=== PATIENT | female | born 1945 | race Caucasian/White ===

== ENCOUNTER 2018-04-03 22:18 | Emergency (ER) | payer MEDICARE, OTHER ==
[~2018-04-03] VITALS: Ht 165.1 cm; Wt 79.4 kg
[~2018-04-03 22:18] MED LIST: ASPI325T8 PO; CYAN10005 IM; DIAZ5TAB PO; FLUN25SP NS; FLUT1DIS3 IH; FLUT9.9S NS; FURO-68 PO; HYDR25TA PO; LISI10TA2 PO; METF10007 PO; METO25TA4 PO; MONT10TA6 PO; OXYC1TAB22 PO; PANT40TA3 PO; POTA10TA12 PO; SENN8.6T99 PO; SIMV40TA PO; SITA100T PO; SULF-143 PO; TIOT18CA IH; TRIA15OI TP
--- NOTE | 2018-04-03 23:37 | PHYS DOC ---
Past Medical History Past Medical History: Diabetes-Type II Past Surgical History: No Surgical History Alcohol Use: Occasionally Drug Use: None Adult General Chief Complaint Chief Complaint: NOSEBLEED HPI HPI Patient is a 72 year old female who presents to the emergency room today with complaints of a nosebleed. Patient states that the nose began to bleed while she was in the shower this evening. She has tried ice packs at home and applying procedure herself without any stopping of her symptoms. Patient denies the use of any of blood thinners. She does not take medication for high blood pressure, and denies any recent head injury. Patient denies any pain or any known injury to her nose. Review of Systems Review of Systems Constitutional: Denies fever or chills [] Eyes: Denies change in visual acuity, redness, or eye pain [] HENT: Denies nasal congestion or sore throat, See HPI Respiratory: Denies cough or shortness of breath [] GI: Denies nausea, or vomiting Neurologic: Denies headache, focal weakness or sensory changes [] Complete systems were reviewed and found to be within normal limits, except as documented in this note. Allergies Allergies Allergies Coded Allergies Type Severity Reaction Last Updated Verified Penicillins Allergy Intermediate Hives 04/01/17 Yes Physical Exam Physical Exam Constitutional: Well developed, well nourished, no acute distress, non-toxic appearance. [] HENT: Normocephalic, atraumatic, bilateral external ears normal, oropharynx moist, posterior pharynx salma, no oral exudates; small abrasion noted to septal wall of R nare minimal bleeding, no bleeding from L nare. [] Eyes: conjunctiva normal, no discharge. [] Skin: Warm, dry, no erythema, no rash. [] Neurologic: Alert and oriented X 3, normal motor function, normal sensory function, no focal deficits noted. [] Psychologic: Affect normal, judgement normal, mood normal. [] Current Patient Data Vital Signs Vital Signs Date Time Temp Pulse Resp B/P (MAP) Pulse Ox O2 Delivery O2 Flow Rate FiO2 04/03/18 22:25 98.1 92 18 121/86 (98) 98 Room Air 98.1 EKG EKG [] Radiology/Procedures Radiology/Procedures [] Course & Med Decision Making Course & Med Decision Making Pertinent Labs and Imaging studies reviewed. (See chart for details) Dx: nose bleed, nasal septum abrasion Bleeding ceased after nasal clamp was applied in the ER. Pt was instructed not to blow her nose, or stick anything in her nose. Recommend a cool mist humidifier in room with patient for the next week to help moisten air. Follow up with PCP as needed. Return to the ER if symptoms persist or worsen. [] Dragon Disclaimer Dragon Disclaimer This electronic medical record was generated, in whole or in part, using a voice recognition dictation system. Departure Departure Impression: Primary Impression: Bleeding nose Additional Impression: Nasal abrasion Disposition: 01 HOME, SELF-CARE Condition: IMPROVED Referrals: UNKNOWN PCP NAME (PCP) Patient Instructions: Nosebleed, [id number] Additional Instructions: Do not to blow your nose, or stick anything into your nose. Recommend a cool mist humidifier in room with patient for the next week to help moisten air. Follow up with PCP as needed. Return to the ER if symptoms persist or worsen. [] Problem Qualifiers Additional Impression: Nasal abrasion Encounter type: initial encounter Qualified Codes: S00.31XA - Abrasion of nose, initial encounter KEV PORRAS E COMMERCE SPECIALIST Apr 03, 2018 23:37
[2018-04-03 23:45] VITALS: BP 124/76
== END 2018-04-03 23:48 | disposition home or self-care (01) ==
LOC: ER 22:18
DX: R04.0 Epistaxis (principal); S00.31XA Abrasion of nose, initial encounter; E11.9 Type 2 diabetes mellitus without complications; Z88.0 Allergy status to penicillin; X58.XXXA Exposure to other specified factors, initial encounter; Y93.89 Activity, other specified; Y92.89 Other specified places as the place of occurrence of the external cause; Y99.8 Other external cause status
CPT/HCPCS: 99282

== ENCOUNTER 2018-04-27 06:44 | Emergency (ER) | payer MEDICARE, OTHER ==
[~2018-04-27] VITALS: Ht 160 cm; Wt 79.4 kg
--- NOTE | 2018-04-27 07:01 | PHYS DOC ---
Past Medical History Past Medical History: Diabetes-Type II Past Surgical History: No Surgical History Alcohol Use: Occasionally Drug Use: None Adult General Chief Complaint Chief Complaint: NOSEBLEED HPI HPI Patient is a 72-year-old female who awakened this morning with a right-sided nosebleed. She denies any recent trauma but states she had her nose broken as a child and did undergo a corrective surgery for this about 4-5 years ago. She denies any pain or recent injury today. She did have a slight nosebleed about a week ago that stopped spontaneously. EMS reports that they applied pressure to the patient's nosebleed and her bleeding has stopped upon arrival in the emergency department. She denies any other complaints. The only anticoagulant she takes as a baby aspirin once a day. There are no alleviating or exacerbating factors to her symptoms. She has not had any other problems with easy bleeding or bruising in the past. Review of Systems Review of Systems Constitutional: Denies fever or chills [] Eyes: Denies change in visual acuity, redness, or eye pain [] HENT: Denies nasal congestion or sore throat [] Respiratory: Denies cough or shortness of breath [] Neurologic: Denies headache, focal weakness or sensory changes [] Endocrine: Denies polyuria or polydipsia [] Allergies Allergies Allergies Coded Allergies Type Severity Reaction Last Updated Verified Penicillins Allergy Intermediate Hives 04/01/17 Yes Physical Exam Physical Exam PHYSICAL EXAM: CONSTITUTIONAL: Well developed, well nourished HEAD: normocephalic, atraumatic EENT: PERRL, EOMI. Conjunctivae normal color, sclerae non-icteric; moist mucous membranes. There is mild excoriation of the anterior nasal mucosa on the right, medially, with no active bleeding. There is no bleeding in the posterior oropharynx. NECK: Supple, non-tender; no meningismus. LUNGS: Lungs CTA, breathing even and unlabored. Normal air movement. HEART: Regular rate and rhythm, no murmur CHEST: No deformity; non-tender ABDOMEN: The abdomen is soft, and non-tender, no masses or bruits. EXTREM: Normal ROM; no deformity, no calf tenderness. Normal pulses palpable in all extremities. There is no pedal edema. SKIN: No rash; no diaphoresis NEURO: Alert; normal speech and cognition; CN's grossly intact; strength grossly intact without focal deficit. BACK: No CVA TTP. Current Patient Data Vital Signs Vital Signs Date Time Temp Pulse Resp B/P (MAP) Pulse Ox O2 Delivery O2 Flow Rate FiO2 04/27/18 06:45 97.8 89 20 147/86 (106) 97 Room Air 97.8 EKG EKG [] Radiology/Procedures Radiology/Procedures [] Course & Med Decision Making Course & Med Decision Making 7:30 AM: The patient's condition remained stable, she has had no recurrence of her epistaxis. I discussed expectant management, home care plan for recurrence of bleeding, the need for follow-up, and return precautions. Dragon Disclaimer Dragon Disclaimer This electronic medical record was generated, in whole or in part, using a voice recognition dictation system. Departure Departure Impression: Primary Impression: Epistaxis Disposition: 01 HOME, SELF-CARE Condition: STABLE Referrals: RAY SINGH MD Patient Instructions: MATTHEW eGe MD Apr 27, 2018 07:01
[2018-04-27 07:48] VITALS: BP 108/55
== END 2018-04-27 08:34 | disposition home or self-care (01) ==
LOC: ER 06:44
DX: R04.0 Epistaxis (principal); E11.9 Type 2 diabetes mellitus without complications; Z88.0 Allergy status to penicillin
CPT/HCPCS: 99283

== ENCOUNTER 2018-05-10 01:57 | Emergency (ER) | payer MEDICARE ==
[~2018-05-10] VITALS: Ht 160 cm; Wt 83.9 kg
--- NOTE | 2018-05-10 02:17 | PHYS DOC ---
Past Medical History Past Medical History: Diabetes-Type II Past Surgical History: No Surgical History Alcohol Use: Occasionally Drug Use: None Adult General HPI HPI Patient is a 72-year-old female who presents with complaint of shortness of breath and pain in her upper abdomen after having been treated by a chiropractor earlier in the day. Patient states that she was having a difficult time sleeping and is feeling anxious. She denies any cough. She states that it is painful to take in a deep breath which is why she feels short of breath. Patient denies any other complaints. Review of Systems Review of Systems Constitutional: Denies fever or chills [] Respiratory: Denies cough or shortness of breath [] Cardiovascular: No additional information not addressed in HPI [] GI: Denies abdominal pain, nausea, vomiting or diarrhea [] Musculoskeletal: Positive back pain [] Integument: Denies rash or skin lesions [] All other systems were reviewed and found to be within normal limits, except as documented in this note. Current Medications Current Medications Current Medications Medications (Trade) Dose Ordered Sig/Armond Start Time Stop Time Status Last Admin Dose Admin Sodium Chloride 1,000 ml @ 1,000 mls/hr 1X ONCE 05/10/18 04:45 05/10/18 05:44 DC 05/10/18 04:45 1,000 MLS/HR Allergies Allergies Allergies Coded Allergies Type Severity Reaction Last Updated Verified Penicillins Allergy Intermediate Hives 04/01/17 Yes Physical Exam Physical Exam Constitutional: Well developed, well nourished, no acute distress, non-toxic appearance. [] HENT: Normocephalic, atraumatic, bilateral external ears normal, oropharynx moist, no oral exudates, nose normal. [] Eyes: PERRLA, EOMI, conjunctiva normal, no discharge. [] Neck: Normal range of motion, no tenderness, supple, no stridor. [] Cardiovascular: Mildly tachycardic rate with regular rhythm. There is reproducible tenderness to palpation in the bilateral lower, mid rib margins [] Lungs & Thorax: Bilateral breath sounds clear to auscultation [] Abdomen: Bowel sounds normal, soft. [] Skin: Warm, dry, no erythema, no rash. [] Extremities: No tenderness, no cyanosis, no clubbing, ROM intact, no edema. [] Neurologic: Awake and alert, no focal deficits noted. [] Current Patient Data Vital Signs Vital Signs Date Time Temp Pulse Resp B/P (MAP) Pulse Ox O2 Delivery O2 Flow Rate FiO2 05/10/18 04:10 82 18 105/67 (80) 94 05/10/18 02:15 98.3 Room Air 98.3 Lab Values Laboratory Tests Test 05/10/18 02:25 White Blood Count 7.8 x10^3/uL (4.0-11.0) Red Blood Count 3.03 x10^6/uL (3.50-5.40) L Hemoglobin 9.9 g/dL (12.0-15.5) L Hematocrit 28.2 % (36.0-47.0) L Mean Corpuscular Volume 93 fL (79-100) Mean Corpuscular Hemoglobin 33 pg (25-35) Mean Corpuscular Hemoglobin Concent 35 g/dL (31-37) Red Cell Distribution Width 13.2 % (11.5-14.5) Platelet Count 281 x10^3/uL (140-400) Neutrophils (%) (Auto) 77 % (31-73) H Lymphocytes (%) (Auto) 15 % (24-48) L Monocytes (%) (Auto) 5 % (0-9) Eosinophils (%) (Auto) 3 % (0-3) Basophils (%) (Auto) 1 % (0-3) Neutrophils # (Auto) 6.0 x10^3uL (1.8-7.7) Lymphocytes # (Auto) 1.2 x10^3/uL (1.0-4.8) Monocytes # (Auto) 0.4 x10^3/uL (0.0-1.1) Eosinophils # (Auto) 0.2 x10^3/uL (0.0-0.7) Basophils # (Auto) 0.1 x10^3/uL (0.0-0.2) Sodium Level 138 mmol/L (136-145) Potassium Level 4.7 mmol/L (3.5-5.1) Chloride Level 101 mmol/L (98-107) Carbon Dioxide Level 29 mmol/L (21-32) Anion Gap 8 (6-14) Blood Urea Nitrogen 57 mg/dL (7-20) H Creatinine 1.6 mg/dL (0.6-1.0) H Estimated GFR (Cockcroft-Gault) 31.5 BUN/Creatinine Ratio 36 (6-20) H Glucose Level 124 mg/dL (70-99) H Calcium Level 9.7 mg/dL (8.5-10.1) Total Bilirubin 0.3 mg/dL (0.2-1.0) Aspartate Amino Transferase (AST) 24 U/L (15-37) Alanine Aminotransferase (ALT) 20 U/L (14-59) Alkaline Phosphatase 56 U/L (46-116) Troponin I Quantitative < 0.017 ng/mL (0.000-0.055) Total Protein 7.1 g/dL (6.4-8.2) Albumin 3.2 g/dL (3.4-5.0) L Albumin/Globulin Ratio 0.8 (1.0-1.7) L Laboratory Tests 05/10/18 02:25 Laboratory Tests 05/10/18 02:25 EKG EKG [] Interpretation Time: EKG demonstrates mild sinus tachycardia with rate of 108. Radiology/Procedures Radiology/Procedures [] Impressions: Chest x-ray demonstrates no acute process. Course & Med Decision Making Course & Med Decision Making Pertinent Labs and Imaging studies reviewed. (See chart for details) [] Dragon Disclaimer Dragon Disclaimer This electronic medical record was generated, in whole or in part, using a voice recognition dictation system. Departure Departure Impression: Primary Impression: Chest wall pain Additional Impression: Dehydration Disposition: 01 HOME, SELF-CARE Condition: STABLE Referrals: UNKNOWN PCP NAME (PCP) Patient Instructions: Chest Wall Pain, Dehydration, Adult Problem Qualifiers JUSTICE HAMILTON Jr. DO May 10, 2018 02:17
[2018-05-10 03:46] LABS: BASO # 0.1 x10^3/uL (0.0-0.2); BASO % 1 % (0-3); EOS # 0.2 x10^3/uL (0.0-0.7); EOS % 3 % (0-3); HEMATOCRIT 28.2 % (36.0-47.0); HEMOGLOBIN 9.9 g/dL (12.0-15.5); LYMPH # 1.2 x10^3/uL (1.0-4.8); LYMPH % 15 % (24-48); MEAN CORPUSCULAR HEMOGLOBIN 33 pg (25-35); MEAN CORPUSCULAR HGB CONC 35 g/dL (31-37); MEAN CORPUSCULAR VOLUME 93 fL (79-100); MONO # 0.4 x10^3/uL (0.0-1.1); MONO % 5 % (0-9); NEUT % 77 % (31-73); PLATELET COUNT 281 x10^3/uL (140-400); RED BLOOD COUNT 3.03 x10^6/uL (3.50-5.40); RED CELL DISTRIBUTION WIDTH 13.2 % (11.5-14.5); WHITE BLOOD COUNT 7.8 x10^3/uL (4.0-11.0)
[2018-05-10 03:53] LABS: CALCIUM 9.7 mg/dL (8.5-10.1); CREATININE 1.6 mg/dL (0.6-1.0); GFR 31.5; POTASSIUM 4.7 mmol/L (3.5-5.1)
[2018-05-10 03:58] LABS: ALBUMIN 3.2 g/dL (3.4-5.0); ALBUMIN/GLOBULIN RATIO 0.8 (1.0-1.7); TOTAL BILIRUBIN 0.3 mg/dL (0.2-1.0); TOTAL PROTEIN 7.1 g/dL (6.4-8.2)
[2018-05-10] MEDS ORDERED: IV NORMAL SALINE 1000ML BAG 1,000 ML IV ONE (04:45)
--- NOTE | 2018-05-10 06:51 | EKG ---
[facility] [address] [place] [address] Test Date: 2018-05-10 Test Time: 02:12:18 Pat Name: SHAUN KING Department: Room: Gender: F [employer] Supervisor: : 1945 Requested By: JUSTICE HAMILTON Order Number: [id number] Reading MD: Kolton Estrada MD Measurements Intervals [place] Rate: 107 P: NM: QRS: 5 QRSD: 76 T: 48 QT: 344 QTc: 464 Interpretive Statements SR NON-SPECIFIC ST/T CHANGES Electronically Signed On 05-10-2018 12:33:05 [employer] ENER[employer] ENGINEER by Kolton Estrada MD
--- NOTE | 2018-05-10 08:07 | RAD ---
Portable chest, 05/10/2018: HISTORY: Chest pain Comparison is made to a study from 04/01/2017. The heart size and pulmonary vascularity are normal. There is mild linear atelectasis or scarring in the right parahilar region. No pulmonary consolidation is seen. There is no evidence of pleural fluid. Moderate hypertrophic spurring is present in the spine. IMPRESSION: Mild right perihilar linear atelectasis or scarring. Electronically signed by: Paul Quarles MD (05/10/2018 8:03 AM) [facility]
[2018-05-10 08:10] VITALS: BP 106/53
== END 2018-05-10 08:41 | disposition home or self-care (01) ==
LOC: ER 01:57
DX: R07.89 Other chest pain (principal); E86.0 Dehydration; R06.02 Shortness of breath; F41.9 Anxiety disorder, unspecified; E11.9 Type 2 diabetes mellitus without complications; Z88.0 Allergy status to penicillin
CPT/HCPCS: 36415; 71045; 80053; 84484; 85025; 93005; 96360; 99284; J7030

== ENCOUNTER 2018-05-30 10:44 | Emergency (ER) | payer MEDICARE, OTHER ==
[~2018-05-30] VITALS: Ht 157.5 cm; Wt 83.9 kg
[~2018-05-30 10:44] MED LIST changes: +CYAN-25 IM; -CYAN10005 IM; +MONT10TA49 PO; -MONT10TA6 PO; -PANT40TA3 PO; +PANT40TA77 PO
[2018-05-30] MEDS ORDERED: OXYMETAZOLINE 0.05% NASAL SPRAY 30ML BOTTLE. NS ONE (11:15)
[2018-05-30 11:26] LABS: HEMATOCRIT 29.5 % (36.0-47.0); HEMOGLOBIN 9.8 g/dL (12.0-15.5); RED BLOOD COUNT 3.16 x10^6/uL (3.50-5.40); WHITE BLOOD COUNT 4.7 x10^3/uL (4.0-11.0)
[2018-05-30 11:38] LABS: CALCIUM 9.2 mg/dL (8.5-10.1); CREATININE 1.4 mg/dL (0.6-1.0); GFR 36.8; POTASSIUM 4.3 mmol/L (3.5-5.1)
[2018-05-30 11:44] LABS: ALBUMIN 2.8 g/dL (3.4-5.0); ALBUMIN/GLOBULIN RATIO 0.7 (1.0-1.7); TOTAL BILIRUBIN 0.4 mg/dL (0.2-1.0); TOTAL PROTEIN 6.9 g/dL (6.4-8.2)
[2018-05-30 11:45] LABS: PROTHROMBIN TIME PATIENT 13.3 SEC (11.7-14.0)
--- NOTE | 2018-05-30 12:29 | PHYS DOC ---
Past Medical History Past Medical History: Anxiety, CAD, COPD, CVA, Diabetes-Type II, GERD, High Cholesterol, Hypertension, NM Past Surgical History: No Surgical History, Angioplasty, Cholecystectomy, Hysterectomy, Tonsillectomy, Other Additional Past Surgical Histo: CARDIAC STENTS Alcohol Use: None Drug Use: None Adult General Chief Complaint Chief Complaint: NOSEBLEED HPI HPI Patient is a 72 year old female resident of assisted living home brought in by EMS because of nosebleed. Patient states her nose due to started at 8:30 at right side and stopped at arrival to emergency room. Patient states she had history of nosebleed about 1 month ago and complaining of nasal congestion and discharge for the last few days without fever and chills. Patient denies dizziness, bleeding problem, chest pain and shortness of breath. Patient is taking baby aspirin. Review of Systems Review of Systems Constitutional: Denies fever or chills [] Eyes: Denies change in visual acuity, redness, or eye pain [] HENT: Force nasal congestion and bleeding Respiratory: Denies cough or shortness of breath [] Cardiovascular: No additional information not addressed in HPI [] GI: Denies abdominal pain, nausea, vomiting, bloody stools or diarrhea [] : Denies dysuria or hematuria [] Musculoskeletal: Denies back pain or joint pain [] Integument: Denies rash or skin lesions [] Neurologic: Denies headache, focal weakness or sensory changes [] Endocrine: Denies polyuria or polydipsia [] All other systems were reviewed and found to be within normal limits, except as documented in this note. Current Medications Current Medications Current Medications Medications (Trade) Dose Ordered Sig/Armond Start Time Stop Time Status Last Admin Dose Admin Oxymetazoline HCl (Afrin) 2 spray 1X ONCE 05/30/18 11:15 05/30/18 11:16 DC 05/30/18 11:28 2 SPRAY Allergies Allergies Allergies Coded Allergies Type Severity Reaction Last Updated Verified Penicillins Allergy Intermediate Hives 04/01/17 Yes Physical Exam Physical Exam Constitutional: Well nourished, mild acute distress, non-toxic appearance. [] HENT: Normocephalic, atraumatic, bilateral external ears normal, oropharynx moist, no oral exudates, no active nasal bleeding, dried blood in right nostril[ ] Eyes: PERRLA, EOMI, conjunctiva normal, no discharge. [] Neck: Normal range of motion, no tenderness, supple, no stridor. [] Cardiovascular:Heart rate regular rhythm, no murmur [] Lungs & Thorax: Bilateral breath sounds clear to auscultation [] Skin: Warm, dry, no erythema, no rash. [] Back: No tenderness, no CVA tenderness. [] Extremities: No tenderness, no cyanosis, no clubbing, ROM intact, no edema. [] Neurologic: Alert and oriented X 3, normal motor function, normal sensory function, no focal deficits noted. [] Psychologic: Affect anxious, judgement normal, mood normal. [] Current Patient Data Vital Signs Vital Signs Date Time Temp Pulse Resp B/P (MAP) Pulse Ox O2 Delivery O2 Flow Rate FiO2 05/30/18 12:30 82 117/61 (79) 95 Room Air 05/30/18 10:44 99.0 20 99.0 Lab Values Laboratory Tests Test 05/30/18 11:16 White Blood Count 4.7 x10^3/uL (4.0-11.0) Red Blood Count 3.16 x10^6/uL (3.50-5.40) L Hemoglobin 9.8 g/dL (12.0-15.5) L Hematocrit 29.5 % (36.0-47.0) L Mean Corpuscular Volume 93 fL (79-100) Mean Corpuscular Hemoglobin 31 pg (25-35) Mean Corpuscular Hemoglobin Concent 33 g/dL (31-37) Red Cell Distribution Width 13.0 % (11.5-14.5) Platelet Count 223 x10^3/uL (140-400) Prothrombin Time 13.3 SEC (11.7-14.0) Prothrombin Time INR 1.0 (0.8-1.1) Sodium Level 138 mmol/L (136-145) Potassium Level 4.3 mmol/L (3.5-5.1) Chloride Level 103 mmol/L (98-107) Carbon Dioxide Level 27 mmol/L (21-32) Anion Gap 8 (6-14) Blood Urea Nitrogen 58 mg/dL (7-20) H Creatinine 1.4 mg/dL (0.6-1.0) H Estimated GFR (Cockcroft-Gault) 36.8 BUN/Creatinine Ratio 41 (6-20) H Glucose Level 158 mg/dL (70-99) H Calcium Level 9.2 mg/dL (8.5-10.1) Total Bilirubin 0.4 mg/dL (0.2-1.0) Aspartate Amino Transferase (AST) 22 U/L (15-37) Alanine Aminotransferase (ALT) 22 U/L (14-59) Alkaline Phosphatase 69 U/L (46-116) Total Protein 6.9 g/dL (6.4-8.2) Albumin 2.8 g/dL (3.4-5.0) L Albumin/Globulin Ratio 0.7 (1.0-1.7) L Laboratory Tests 05/30/18 11:16 Laboratory Tests 05/30/18 11:16 EKG EKG [] Radiology/Procedures Radiology/Procedures [] Course & Med Decision Making Course & Med Decision Making Pertinent Labs reviewed. (See chart for details) Evaluation of patient in ER showed 72-year-old female patient brought in by EMS because of nosebleed. Patient did not have active epistaxis in ER and treated with nasal Afrin spray. Labs showed chronic anemia and renal insufficiency. Patient was advised to apply local pressure on her nose in case of nasal bleeding. Patient was advised to follow with her primary care physician. Dragon Disclaimer Dragon Disclaimer This electronic medical record was generated, in whole or in part, using a voice recognition dictation system. Departure Departure Impression: Primary Impression: Epistaxis Additional Impressions: Nasal congestion Chronic anemia Chronic renal insufficiency Disposition: 01 HOME, SELF-CARE (@1225) Condition: IMPROVED Referrals: SHELLY GODINEZ MD (PCP) Patient Instructions: Nose Drops, Saline, [id number], Nosebleed Additional Instructions: Use provided nose spray of Afrin up to 4 times a day as needed for nosebleed Follow-up with your primary care physician in 3-5 days Return to ER if not getting better Problem Qualifiers MANDEEP LORA MD May 30, 2018 12:28
[2018-05-30 12:30] VITALS: BP 117/61
== END 2018-05-30 12:52 | disposition home or self-care (01) ==
LOC: ER 10:44
DX: R04.0 Epistaxis (principal); R09.81 Nasal congestion; D64.89 Other specified anemias; E11.22 Type 2 diabetes mellitus with diabetic chronic kidney disease; I12.9 Hypertensive chronic kidney disease with stage 1 through stage 4 chronic kidney disease, or unspecified chronic kidney disease; N18.9 Chronic kidney disease, unspecified; E78.00 Pure hypercholesterolemia, unspecified; K21.9 Gastro-esophageal reflux disease without esophagitis; Z86.73 Personal history of transient ischemic attack (TIA), and cerebral infarction without residual deficits; I25.10 Atherosclerotic heart disease of native coronary artery without angina pectoris; I25.2 Old myocardial infarction; Z95.5 Presence of coronary angioplasty implant and graft; Z88.0 Allergy status to penicillin
CPT/HCPCS: 36415; 80053; 85027; 85610; 99284

== ENCOUNTER 2018-11-17 11:41 | Inpatient (IN) | payer MEDICARE, OTHER ==
[~2018-11-17] VITALS: Ht 162.6 cm; Wt 102.8 kg
[2018-11-17 12:33] LABS: BASO # 0.1 x10^3/uL (0.0-0.2); BASO % 1 % (0-3); EOS # 0.2 x10^3/uL (0.0-0.7); EOS % 2 % (0-3); HEMATOCRIT 39.2 % (36.0-47.0); HEMOGLOBIN 12.9 g/dL (12.0-15.5); LYMPH # 1.1 x10^3/uL (1.0-4.8); LYMPH % 15 % (24-48); MEAN CORPUSCULAR HEMOGLOBIN 29 pg (25-35); MEAN CORPUSCULAR HGB CONC 33 g/dL (31-37); MEAN CORPUSCULAR VOLUME 89 fL (79-100); MONO # 0.3 x10^3/uL (0.0-1.1); MONO % 4 % (0-9); NEUT # 5.7 x10^3/uL (1.8-7.7); NEUT % 78 % (31-73); PLATELET COUNT 248 x10^3/uL (140-400); RED BLOOD COUNT 4.39 x10^6/uL (3.50-5.40); RED CELL DISTRIBUTION WIDTH 14.9 % (11.5-14.5); WHITE BLOOD COUNT 7.3 x10^3/uL (4.0-11.0)
--- NOTE | 2018-11-17 12:41 | RAD ---
PORTABLE CHEST 1V History: Shortness of breath.. Comparison: May 10, 2018. Heart size is stable no evidence of pneumothorax, pleural effusion or consolidation. There are linear markings in both lungs, particularly the bases, may represent atelectasis or fibrosis. Degenerative changes at the shoulders. IMPRESSION: No consolidating infiltrate is identified. Electronically signed by: Sb Lomas MD (11/17/2018 12:39 PM) [id number]
[2018-11-17 12:43] LABS: PROTHROMBIN TIME PATIENT 12.8 SEC (11.7-14.0)
[2018-11-17 12:44] LABS: CALCIUM 9.5 mg/dL (8.5-10.1); CREATININE 1.4 mg/dL (0.6-1.0); GFR 36.8; POTASSIUM 4.4 mmol/L (3.5-5.1)
[2018-11-17 12:51] LABS: ALBUMIN 3.6 g/dL (3.4-5.0); ALBUMIN/GLOBULIN RATIO 1.1 (1.0-1.7); MAGNESIUM 1.5 mg/dL (1.8-2.4); TOTAL BILIRUBIN 0.6 mg/dL (0.2-1.0)
[2018-11-17 12:57] LABS: CREATINE KINASE 74 U/L (26-192)
--- NOTE | 2018-11-17 13:06 | EKG ---
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
--- NOTE | 2018-11-17 15:35 | PDOC1 ---
History and Physical Date of Admission Date of Admission DATE: 11/17/18 TIME: 15:35 Identification/Chief Complaint Chief Complaint seen in er , 72 year old female who was taken here from nuclear medicine department for trouble breathing, hypotension while she had a nuclear stress test done. She says she had the first test done yesterday and she was doing ok but today she has shortness of air and having low blood pressure. Patient denied any chest pain. Patient said she has been having nonproductive cough for a few day. She lives at the skilled nursing and some of the residents there have pneumonia. Past Medical History Cardiovascular: HTN, Hyperlipidemia Pulmonary: Asthma Heme/Onc: B12 deficiency Psych: Anxiety Musculoskeletal: Osteoarthritis Renal/: Chronic renal insuff Endocrine: Diabetes Past Surgical History Past Surgical History: No pertinent history Family History Family History: High Cholestrol Social History Smoke: No ALCOHOL: none Drugs: None Current Medications Current Medications Active Scripts Active Sulfamethoxazole-Tmp Ds Tablet (Sulfamethoxazole/Trimethoprim) 1 Each Tablet 1 Tab PO BID 5 Days Aspirin 325 Mg Tablet 325 Mg PO DAILYWBKFT 30 Days Reported Valium (Diazepam) 5 Mg Tablet 5 Mg PO BID PRN Percocet 10-325 Mg Tablet (Oxycodone/Acetaminophen) 1 Each Tablet 1 Tab PO PRN Q6HRS PRN Metformin Hcl 1,000 Mg Tablet 1,000 Mg PO BIDWMEALS Zocor (Simvastatin) 40 Mg Tablet 40 Mg PO HS Advair 250-50 Diskus (Fluticasone/Salmeterol) 1 Each Disk.w.dev 1 Inh IH BID Potassium Chloride 10 Meq Tablet.er 10 Meq PO BID Spiriva (Tiotropium [place]) 18 Mcg Cap.w.dev 1 Cap IH DAILY Lisinopril 10 Mg Tablet 10 Mg PO DAILY Senokot (Sennosides) 8.6 Mg Tablet 8.6 Mg PO DAILY Protonix (Pantoprazole Sodium) 40 Mg Tablet.dr 40 Mg PO DAILY Singulair Tablet (Montelukast Sodium) 10 Mg Tablet 10 Mg PO HS Lasix (Furosemide) 40 Mg Tablet 80 Mg PO DAILY Januvia (Sitagliptin Phosphate) 100 Mg Tablet 100 Mg PO DAILY Triamcinolone Acetonide 0.1% Oint (Triamcinolone Acetonide) 15 Gm Oint...g. 1 Lisa TP TID MIX WITH EUCERIN DIRECTED BY PHYSICIAN Flonase Allergy Relief (Fluticasone Propionate) 9.9 Ml Brantley.susp 2 Sprays NS DAILY Metoprolol Tartrate 25 Mg Tablet 12.5 Mg PO BID Hydroxyzine Hcl 25 Mg Tablet 25 Mg PO BID Vitamin B-12 (Cyanocobalamin (Vitamin B-12)) 1,000 Mcg Tablet 1,000 Mcg IM QMONTH Flunisolide 25 Ml Brantley 2 Brantley NS BID Allergies Allergies: Coded Allergies: Penicillins (Verified Allergy, Intermediate, Hives, 04/01/17) ROS Review of System Review of Systems Review of Systems Constitutional: Denies fever or chills [] Eyes: Denies change in visual acuity, redness, or eye pain [] HENT: Denies nasal congestion or sore throat [] Respiratory: Positive for cough and shortness of breath [] Cardiovascular: No additional information not addressed in HPI [] GI: Denies abdominal pain, nausea, vomiting, bloody stools or diarrhea [] : Denies dysuria or hematuria [] Musculoskeletal: Denies back pain or joint pain [] Integument: Denies rash or skin lesions [] Neurologic: Denies headache, focal weakness or sensory changes [] Endocrine: Denies polyuria or polydipsia [] 14 pt systems were reviewed and found to be within normal limits, except as documented Physical Exam Physical Exam Physical Exam Physical Exam Constitutional: Well developed, well nourished, no acute distress, non-toxic appearance. [] HENT: Normocephalic, atraumatic, bilateral external ears normal, oropharynx moist, no oral exudates, nose normal. [] Eyes: PERRLA, EOMI, conjunctiva normal, no discharge. [] Neck: Normal range of motion, no tenderness, supple, no stridor. [] Cardiovascular:Heart rate regular rhythm, no murmur [] Lungs & Thorax: Bilateral breath sounds clear to auscultation [] Abdomen: Bowel sounds normal, soft, no tenderness, no masses, no pulsatile masses. [] Skin: Warm, dry, no erythema, no rash. [] Back: No tenderness, no CVA tenderness. [] Extremities: No tenderness, no cyanosis, no clubbing, ROM intact, no edema. [] Neurologic: Alert and oriented X 3, normal motor function, normal sensory function, no focal deficits noted. [] Psychologic: Affect normal, judgement normal, mood normal. [] General: Alert, Oriented X3, Cooperative, No acute distress HEENT: Atraumatic Lungs: Clear to auscultation Heart: RRR Breasts: Not examined Abdomen: Normal bowel sounds, Soft Rectal Exam: not examined Extremities: No cyanosis Neuro: Normal speech, Cranial nerves 3-12 NL Psych/Mental Status: Mental status NL, Mood NL Vitals Vitals Vital Signs Date Time Temp Pulse Resp B/P (MAP) Pulse Ox O2 Delivery O2 Flow Rate FiO2 11/17/18 13:04 120 18 97/71 (80) 90 Nasal Cannula 3.0 11/17/18 11:47 98.0 98.0 Labs Labs Laboratory Tests Test 11/17/18 11:55 White Blood Count 7.3 x10^3/uL (4.0-11.0) Red Blood Count 4.39 x10^6/uL (3.50-5.40) Hemoglobin 12.9 g/dL (12.0-15.5) Hematocrit 39.2 % (36.0-47.0) Mean Corpuscular Volume 89 fL (79-100) Mean Corpuscular Hemoglobin 29 pg (25-35) Mean Corpuscular Hemoglobin Concent 33 g/dL (31-37) Red Cell Distribution Width 14.9 % (11.5-14.5) Platelet Count 248 x10^3/uL (140-400) Neutrophils (%) (Auto) 78 % (31-73) Lymphocytes (%) (Auto) 15 % (24-48) Monocytes (%) (Auto) 4 % (0-9) Eosinophils (%) (Auto) 2 % (0-3) Basophils (%) (Auto) 1 % (0-3) Neutrophils # (Auto) 5.7 x10^3/uL (1.8-7.7) Lymphocytes # (Auto) 1.1 x10^3/uL (1.0-4.8) Monocytes # (Auto) 0.3 x10^3/uL (0.0-1.1) Eosinophils # (Auto) 0.2 x10^3/uL (0.0-0.7) Basophils # (Auto) 0.1 x10^3/uL (0.0-0.2) Prothrombin Time 12.8 SEC (11.7-14.0) Prothromb Time International Ratio 1.0 (0.8-1.1) Activated Partial Thromboplast Time 24 SEC (24-38) Sodium Level 141 mmol/L (136-145) Potassium Level 4.4 mmol/L (3.5-5.1) Chloride Level 103 mmol/L (98-107) Carbon Dioxide Level 27 mmol/L (21-32) Anion Gap 11 (6-14) Blood Urea Nitrogen 39 mg/dL (7-20) Creatinine 1.4 mg/dL (0.6-1.0) Estimated GFR (Cockcroft-Gault) 36.8 BUN/Creatinine Ratio 28 (6-20) Glucose Level 151 mg/dL (70-99) Calcium Level 9.5 mg/dL (8.5-10.1) Magnesium Level 1.5 mg/dL (1.8-2.4) Total Bilirubin 0.6 mg/dL (0.2-1.0) Aspartate Amino Transf (AST/SGOT) 16 U/L (15-37) Alanine Aminotransferase (ALT/SGPT) 15 U/L (14-59) Alkaline Phosphatase 76 U/L (46-116) Creatine Kinase 74 U/L (26-192) Creatine Kinase MB (Mass) 1.3 ng/mL (0.0-3.6) Creatine Kinase MB Relative Index % (0-4) Troponin I Quantitative < 0.017 ng/mL (0.000-0.055) HV-Lmo-M-Type Natriuretic Peptide 2062 pg/mL (0-124) Total Protein 7.0 g/dL (6.4-8.2) Albumin 3.6 g/dL (3.4-5.0) Albumin/Globulin Ratio 1.1 (1.0-1.7) Laboratory Tests Test 11/17/18 11:55 White Blood Count 7.3 x10^3/uL (4.0-11.0) Red Blood Count 4.39 x10^6/uL (3.50-5.40) Hemoglobin 12.9 g/dL (12.0-15.5) Hematocrit 39.2 % (36.0-47.0) Mean Corpuscular Volume 89 fL (79-100) Mean Corpuscular Hemoglobin 29 pg (25-35) Mean Corpuscular Hemoglobin Concent 33 g/dL (31-37) Red Cell Distribution Width 14.9 % (11.5-14.5) Platelet Count 248 x10^3/uL (140-400) Neutrophils (%) (Auto) 78 % (31-73) Lymphocytes (%) (Auto) 15 % (24-48) Monocytes (%) (Auto) 4 % (0-9) Eosinophils (%) (Auto) 2 % (0-3) Basophils (%) (Auto) 1 % (0-3) Neutrophils # (Auto) 5.7 x10^3/uL (1.8-7.7) Lymphocytes # (Auto) 1.1 x10^3/uL (1.0-4.8) Monocytes # (Auto) 0.3 x10^3/uL (0.0-1.1) Eosinophils # (Auto) 0.2 x10^3/uL (0.0-0.7) Basophils # (Auto) 0.1 x10^3/uL (0.0-0.2) Prothrombin Time 12.8 SEC (11.7-14.0) Prothromb Time International Ratio 1.0 (0.8-1.1) Activated Partial Thromboplast Time 24 SEC (24-38) Sodium Level 141 mmol/L (136-145) Potassium Level 4.4 mmol/L (3.5-5.1) Chloride Level 103 mmol/L (98-107) Carbon Dioxide Level 27 mmol/L (21-32) Anion Gap 11 (6-14) Blood Urea Nitrogen 39 mg/dL (7-20) Creatinine 1.4 mg/dL (0.6-1.0) Estimated GFR (Cockcroft-Gault) 36.8 BUN/Creatinine Ratio 28 (6-20) Glucose Level 151 mg/dL (70-99) Calcium Level 9.5 mg/dL (8.5-10.1) Magnesium Level 1.5 mg/dL (1.8-2.4) Total Bilirubin 0.6 mg/dL (0.2-1.0) Aspartate Amino Transf (AST/SGOT) 16 U/L (15-37) Alanine Aminotransferase (ALT/SGPT) 15 U/L (14-59) Alkaline Phosphatase 76 U/L (46-116) Creatine Kinase 74 U/L (26-192) Creatine Kinase MB (Mass) 1.3 ng/mL (0.0-3.6) Creatine Kinase MB Relative Index % (0-4) Troponin I Quantitative < 0.017 ng/mL (0.000-0.055) RK-Rch-W-Type Natriuretic Peptide 2062 pg/mL (0-124) Total Protein 7.0 g/dL (6.4-8.2) Albumin 3.6 g/dL (3.4-5.0) Albumin/Globulin Ratio 1.1 (1.0-1.7) Images Images PORTABLE CHEST 1V History: Shortness of breath.. Comparison: May 10, 2018. Heart size is stable no evidence of pneumothorax, pleural effusion or consolidation. There are linear markings in both lungs, particularly the bases, may represent atelectasis or fibrosis. Degenerative changes at the shoulders. IMPRESSION: No consolidating infiltrate is identified. Electronically signed by: Sb Lomas MD (11/17/2018 12:39 PM) [facility] VTE Prophylaxis Ordered VTE Prophylaxis Devices: Yes VTE Pharmacological Prophylaxi: Yes Assessment/Plan Assessment/Plan Impression: Dyspnea known hx cad morbid obesity remote cerebrovascular accident, left parietal infarct. Diabetes. Hypertension Hyperlipidemia. hx Chronic obstructive pulmonary disease. CKD STAGE 3 ADMITTED tele cardiology consult serial troponin i obtain results of stress testing HOME MEDS DVT PROPHYLAXIS 63 min pt exam, chart review, > 50% of time spent with exam, chart review, pt care coordination ALEXANDRIA DAMICO MD Nov 17, 2018 15:35
--- NOTE | 2018-11-17 16:16 | PHYS DOC ---
Past Medical History Past Medical History: Anxiety, CAD, COPD, CVA, Diabetes-Type II, GERD, High Cholesterol, Hypertension, MT Past Surgical History: No Surgical History, Angioplasty, Cholecystectomy, Hysterectomy, Tonsillectomy, Other Additional Past Surgical Histo: CARDIAC STENTS Alcohol Use: None Drug Use: None Adult General Chief Complaint Chief Complaint: SHORTNESS OF BREATH HPI HPI Patient is a 72 year old female who was taken here from nuclear medicine department for trouble breathing, hypotension while she had a nuclear stress test done. She says she had the first test done yesterday and she was doing ok but today she has shortness of air and having low blood pressure. Patient denied any chest pain. Patient said she has been having nonproductive cough for a few day. [facility] and some of the residents there have pneumonia. Review of Systems Review of Systems Constitutional: Denies fever or chills [] Eyes: Denies change in visual acuity, redness, or eye pain [] HENT: Denies nasal congestion or sore throat [] Respiratory: Positive for cough and shortness of breath [] Cardiovascular: No additional information not addressed in HPI [] GI: Denies abdominal pain, nausea, vomiting, bloody stools or diarrhea [] : Denies dysuria or hematuria [] Musculoskeletal: Denies back pain or joint pain [] Integument: Denies rash or skin lesions [] Neurologic: Denies headache, focal weakness or sensory changes [] Endocrine: Denies polyuria or polydipsia [] All other systems were reviewed and found to be within normal limits, except as documented in this note. Current Medications Current Medications Current Medications Medications (Trade) Dose Ordered Sig/Armond Start Time Stop Time Status Last Admin Dose Admin Albuterol/ Ipratropium (Duoneb) 3 ml RTQID 11/17/18 20:00 11/18/18 19:59 Allergies Allergies Allergies Coded Allergies Type Severity Reaction Last Updated Verified Penicillins Allergy Intermediate Hives 04/01/17 Yes Physical Exam Physical Exam Constitutional: Well developed, well nourished, no acute distress, non-toxic appearance. [] HENT: Normocephalic, atraumatic, bilateral external ears normal, oropharynx moist, no oral exudates, nose normal. [] Eyes: PERRLA, EOMI, conjunctiva normal, no discharge. [] Neck: Normal range of motion, no tenderness, supple, no stridor. [] Cardiovascular:Heart rate regular rhythm, no murmur [] Lungs & Thorax: Bilateral breath sounds clear to auscultation [] Abdomen: Bowel sounds normal, soft, no tenderness, no masses, no pulsatile masses. [] Skin: Warm, dry, no erythema, no rash. [] Back: No tenderness, no CVA tenderness. [] Extremities: No tenderness, no cyanosis, no clubbing, ROM intact, no edema. [] Neurologic: Alert and oriented X 3, normal motor function, normal sensory function, no focal deficits noted. [] Psychologic: Affect normal, judgement normal, mood normal. [] Current Patient Data Vital Signs Vital Signs Date Time Temp Pulse Resp B/P (MAP) Pulse Ox O2 Delivery O2 Flow Rate FiO2 11/17/18 15:14 98 18 119/66 (83) 95 Nasal Cannula 3.0 11/17/18 11:47 98.0 98.0 Lab Values Laboratory Tests Test 11/17/18 11:55 White Blood Count 7.3 x10^3/uL (4.0-11.0) Red Blood Count 4.39 x10^6/uL (3.50-5.40) Hemoglobin 12.9 g/dL (12.0-15.5) Hematocrit 39.2 % (36.0-47.0) Mean Corpuscular Volume 89 fL (79-100) Mean Corpuscular Hemoglobin 29 pg (25-35) Mean Corpuscular Hemoglobin Concent 33 g/dL (31-37) Red Cell Distribution Width 14.9 % (11.5-14.5) H Platelet Count 248 x10^3/uL (140-400) Neutrophils (%) (Auto) 78 % (31-73) H Lymphocytes (%) (Auto) 15 % (24-48) L Monocytes (%) (Auto) 4 % (0-9) Eosinophils (%) (Auto) 2 % (0-3) Basophils (%) (Auto) 1 % (0-3) Neutrophils # (Auto) 5.7 x10^3/uL (1.8-7.7) Lymphocytes # (Auto) 1.1 x10^3/uL (1.0-4.8) Monocytes # (Auto) 0.3 x10^3/uL (0.0-1.1) Eosinophils # (Auto) 0.2 x10^3/uL (0.0-0.7) Basophils # (Auto) 0.1 x10^3/uL (0.0-0.2) Prothrombin Time 12.8 SEC (11.7-14.0) Prothrombin Time INR 1.0 (0.8-1.1) PTT 24 SEC (24-38) Sodium Level 141 mmol/L (136-145) Potassium Level 4.4 mmol/L (3.5-5.1) Chloride Level 103 mmol/L (98-107) Carbon Dioxide Level 27 mmol/L (21-32) Anion Gap 11 (6-14) Blood Urea Nitrogen 39 mg/dL (7-20) H Creatinine 1.4 mg/dL (0.6-1.0) H Estimated GFR (Cockcroft-Gault) 36.8 BUN/Creatinine Ratio 28 (6-20) H Glucose Level 151 mg/dL (70-99) H Calcium Level 9.5 mg/dL (8.5-10.1) Magnesium Level 1.5 mg/dL (1.8-2.4) L Total Bilirubin 0.6 mg/dL (0.2-1.0) Aspartate Amino Transferase (AST) 16 U/L (15-37) Alanine Aminotransferase (ALT) 15 U/L (14-59) Alkaline Phosphatase 76 U/L (46-116) Creatine Kinase 74 U/L (26-192) Creatine Kinase MB (Mass) 1.3 ng/mL (0.0-3.6) Creatine Kinase MB Relative Index % (0-4) Troponin I Quantitative < 0.017 ng/mL (0.000-0.055) OL-Rtv-M-Type Natriuretic Peptide 2062 pg/mL (0-124) H Total Protein 7.0 g/dL (6.4-8.2) Albumin 3.6 g/dL (3.4-5.0) Albumin/Globulin Ratio 1.1 (1.0-1.7) Laboratory Tests 11/17/18 11:55 Laboratory Tests 11/17/18 11:55 EKG EKG EKG RATE OF 134 BPM, SINUS TACHYCARDIA, NO STEMI. Radiology/Procedures Radiology/Procedures [][facility] [address] [place] [address] IMAGING REPORT Signed PATIENT: SHAUN KING ACCOUNT: [id number] : 1945 LOCATION: ER AGE: 72 SEX: F EXAM STATUS: REG ER ORD. PHYSICIAN: NUVIA MENDOZA DO REASON: SOA PROCEDURE: PORTABLE CHEST 1V PORTABLE CHEST 1V History: Shortness of breath.. Comparison: May 10, 2018. Heart size is stable no evidence of pneumothorax, pleural effusion or consolidation. There are linear markings in both lungs, particularly the bases, may represent atelectasis or fibrosis. Degenerative changes at the shoulders. IMPRESSION: No consolidating infiltrate is identified. Electronically signed by: Sb Lomas MD (11/17/2018 12:39 PM) [facility] DICTATED and SIGNED BY: SB LOMAS MD DATE: 11/17/18 1239 Course & Med Decision Making Course & Med Decision Making Pertinent Labs and Imaging studies reviewed. (See chart for details) Patient felt much better now, no chest pain, no shortness of air, no abdominal pain, no nausea or vomiting. Dragon Disclaimer Dragon Disclaimer This electronic medical record was generated, in whole or in part, using a voice recognition dictation system. Departure Departure Impression: Primary Impression: Dyspnea Disposition: ADMITTED INPATIENT Admitting Physician: KIRSTIN Referrals: SHELLY GODINEZ MD (PCP) NUVIA MENDOZA DO Nov 17, 2018 16:16
[2018-11-17 17:00] VITALS: BP 112/65
[2018-11-17] MEDS ORDERED: oxyCODONE/APAP 10/325 1 TAB TABLET PO PRN (17:15)
[2018-11-17] MEDS: POTASSIUM CHLORIDE 10 MEQ TABLET.ER. PO SCH (17:22)
[2018-11-17] MEDS: metFORMIN 500 MG TABLET PO SCH (17:23)
[2018-11-17] MEDS ORDERED: ENOXAPARIN 40 MG/0.4 ML SYRINGE. SQ SCH (18:00)
[2018-11-17] MEDS ORDERED: KRIL1CAP10 PO (18:22)
[2018-11-17] MEDS ORDERED: MUPI22OI2 TP (18:22)
[2018-11-17] MEDS ORDERED: ALEN70TA6 PO (18:22)
[2018-11-17] MEDS ORDERED: ACET500T68 PO (18:22)
[2018-11-17] MEDS ORDERED: COLL30OI TP (18:22)
[2018-11-17] MEDS ORDERED: DICL100G18 TP (18:22)
[2018-11-17] MEDS ORDERED: DIAZ2TAB PO (18:22)
[2018-11-17] MEDS ORDERED: PRAZ1CAP2 PO (18:22)
[2018-11-17] MEDS ORDERED: PHOS118S17 PO (18:22)
[2018-11-17] MEDS ORDERED: ASPI-630 PO (18:22)
[2018-11-17 19:53] VITALS: BP 120/51
[2018-11-17] MEDS: IPRATRPIUM/ALBUTEROL 0.5/2.5MG 3 ML NEBU. NEB SCH (19:55)
[2018-11-17] MEDS: BUDESONIDE 0.5 MG/2 ML NEBU. NEB SCH (19:55)
[2018-11-17] MEDS ORDERED: IPRATRPIUM/ALBUTEROL 0.5/2.5MG 3 ML NEBU. NEB SCH (20:00)
[2018-11-17] MEDS: SIMVASTATIN 40 MG TABLET. PO SCH (20:39)
[2018-11-17] MEDS: hydrOXYzine 25 MG TABLET PO SCH (20:39)
[2018-11-17] MEDS: MONTELUKAST SODIUM 10 MG TABLET. PO SCH (20:40)
[2018-11-17] MEDS ORDERED: NON FORMULARY ITEM (Fluticasone/Salmeterol (Advair 250-50 Diskus) 1 INH) IH SCH (21:00)
[2018-11-17] MEDS ORDERED: METOPROLOL TART IMMED RELEASE 25 MG TABLET. PO SCH (21:00)
[2018-11-17] MEDS: diazePAM 5 MG TABLET PO PRN (21:13)
[2018-11-17 23:59] VITALS: BP 110/55
[2018-11-18 03:26] VITALS: BP 115/71
[2018-11-18 05:56] LABS: BASO % 1 % (0-3); EOS # 0.2 x10^3/uL (0.0-0.7); EOS % 3 % (0-3); HEMATOCRIT 33.7 % (36.0-47.0); HEMOGLOBIN 11.2 g/dL (12.0-15.5); LYMPH # 1.2 x10^3/uL (1.0-4.8); LYMPH % 21 % (24-48); MEAN CORPUSCULAR HEMOGLOBIN 30 pg (25-35); MEAN CORPUSCULAR HGB CONC 33 g/dL (31-37); MEAN CORPUSCULAR VOLUME 90 fL (79-100); MONO # 0.3 x10^3/uL (0.0-1.1); MONO % 5 % (0-9); NEUT % 70 % (31-73); PLATELET COUNT 192 x10^3/uL (140-400); RED BLOOD COUNT 3.75 x10^6/uL (3.50-5.40); RED CELL DISTRIBUTION WIDTH 14.7 % (11.5-14.5); WHITE BLOOD COUNT 5.7 x10^3/uL (4.0-11.0)
[2018-11-18 07:00] VITALS: BP 115/50
[2018-11-18] MEDS: BUDESONIDE 0.5 MG/2 ML NEBU. NEB SCH ×2 (08:01→19:45)
[2018-11-18] MEDS: IPRATRPIUM/ALBUTEROL 0.5/2.5MG 3 ML NEBU. NEB SCH ×4 (08:04→19:45)
[2018-11-18] MEDS: PANTOPRAZOLE 40 MG TABLET.DR. PO SCH (08:31)
[2018-11-18] MEDS: FUROSEMIDE 40 MG TABLET. PO SCH (08:31)
[2018-11-18] MEDS: hydrOXYzine 25 MG TABLET PO SCH ×2 (08:31→21:06)
[2018-11-18] MEDS: CYANOCOBALAMIN (VITAMIN B-12) 1,000 MCG TABLET. PO SCH (08:31)
[2018-11-18] MEDS: LINAGLIPTIN 5 MG TABLET PO SCH (08:31)
[2018-11-18] MEDS: SENNOSIDES 8.6 MG TABLET PO SCH (08:31)
[2018-11-18] MEDS: FLUTICASONE 50MCG/NASAL SPRAY 16GM BOTTLE. NS SCH (08:32)
[2018-11-18] MEDS: metFORMIN 500 MG TABLET PO SCH ×2 (08:32→17:38)
[2018-11-18] MEDS: POTASSIUM CHLORIDE 10 MEQ TABLET.ER. PO SCH ×2 (08:32→17:38)
[2018-11-18] MEDS: ASPIRIN 325 MG TABLET PO SCH (08:32)
[2018-11-18] MEDS ORDERED: LISINOPRIL 10 MG TABLET PO SCH (09:00)
[2018-11-18] MEDS ORDERED: NON FORMULARY ITEM (Tiotropium Bromide (Spiriva) 1 CAP) IH SCH (09:00)
--- NOTE | 2018-11-18 09:57 | NUR ---
SS following for discharge planning. SS reviewed pt chart. Pt is from [facility], ; fax [phone]. SS contacted [facility] and confirmed that pt is a resident at there facility and is able to return with home healthcare services when stable for discharge. SS will continue to follow for discharge planning.
--- NOTE | 2018-11-18 10:30 | NUR ---
Pt stated that "I don't take this many medications. This isn't right." This RN wanted to verify the preferred pharmacy for the patient. Pt could not answer this quesition. She stated "my doctor is at [facility], you need to call them for the list." This RN requested he fax an updated medication list from an MANAGER GRANT at [facility]. This RN reviewed this list of medications to what is in the med rec list in [facility], and they all match. Will continue to monitor.
--- NOTE | 2018-11-18 10:41 | PDOC ---
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 He and now is our group Takes aspirin 81 at home Creatinine 1.4-known CAD stage III Old stroke but no residuals Came from [place]-she takes her own) plan: involve cardiology regarding this hypotension dizziness during stress test-apparently was ordered by our cardiology group Back to [place] hopefully on discharge PT OT when able I held lisinopril and beta ana maria-blood pressure systolic today without meds 110s to 120s Avoid nephrotoxins-creatinine 1.4 check orthostatics Further recs pending course Discussed with her Full code Vitals Vitals Vital Signs Date Time Temp Pulse Resp B/P (MAP) Pulse Ox O2 Delivery O2 Flow Rate FiO2 11/18/18 08:04 98 Nasal Cannula 2.0 11/18/18 07:00 98.5 81 20 115/50 (71) 98.5 Physical Exam General: Alert, Oriented X3, Cooperative, No acute distress Abdomen: Normal bowel sounds, Soft Extremities: No cyanosis Labs LABS Laboratory Tests Test 11/17/18 11:55 11/17/18 17:01 11/17/18 21:13 11/18/18 04:50 White Blood Count 7.3 x10^3/uL (4.0-11.0) 5.7 x10^3/uL (4.0-11.0) Red Blood Count 4.39 x10^6/uL (3.50-5.40) 3.75 x10^6/uL (3.50-5.40) Hemoglobin 12.9 g/dL (12.0-15.5) 11.2 g/dL (12.0-15.5) Hematocrit 39.2 % (36.0-47.0) 33.7 % (36.0-47.0) Mean Corpuscular Volume 89 fL (79-100) 90 fL (79-100) Mean Corpuscular Hemoglobin 29 pg (25-35) 30 pg (25-35) Mean Corpuscular Hemoglobin Concent 33 g/dL (31-37) 33 g/dL (31-37) Red Cell Distribution Width 14.9 % (11.5-14.5) 14.7 % (11.5-14.5) Platelet Count 248 x10^3/uL (140-400) 192 x10^3/uL (140-400) Neutrophils (%) (Auto) 78 % (31-73) 70 % (31-73) Lymphocytes (%) (Auto) 15 % (24-48) 21 % (24-48) Monocytes (%) (Auto) 4 % (0-9) 5 % (0-9) Eosinophils (%) (Auto) 2 % (0-3) 3 % (0-3) Basophils (%) (Auto) 1 % (0-3) 1 % (0-3) Neutrophils # (Auto) 5.7 x10^3/uL (1.8-7.7) 4.0 x10^3/uL (1.8-7.7) Lymphocytes # (Auto) 1.1 x10^3/uL (1.0-4.8) 1.2 x10^3/uL (1.0-4.8) Monocytes # (Auto) 0.3 x10^3/uL (0.0-1.1) 0.3 x10^3/uL (0.0-1.1) Eosinophils # (Auto) 0.2 x10^3/uL (0.0-0.7) 0.2 x10^3/uL (0.0-0.7) Basophils # (Auto) 0.1 x10^3/uL (0.0-0.2) 0.0 x10^3/uL (0.0-0.2) Prothrombin Time 12.8 SEC (11.7-14.0) Prothromb Time International Ratio 1.0 (0.8-1.1) Activated Partial Thromboplast Time 24 SEC (24-38) Sodium Level 141 mmol/L (136-145) Potassium Level 4.4 mmol/L (3.5-5.1) Chloride Level 103 mmol/L (98-107) Carbon Dioxide Level 27 mmol/L (21-32) Anion Gap 11 (6-14) Blood Urea Nitrogen 39 mg/dL (7-20) Creatinine 1.4 mg/dL (0.6-1.0) Estimated GFR (Cockcroft-Gault) 36.8 BUN/Creatinine Ratio 28 (6-20) Glucose Level 151 mg/dL (70-99) Calcium Level 9.5 mg/dL (8.5-10.1) Magnesium Level 1.5 mg/dL (1.8-2.4) Total Bilirubin 0.6 mg/dL (0.2-1.0) Aspartate Amino Transf (AST/SGOT) 16 U/L (15-37) Alanine Aminotransferase (ALT/SGPT) 15 U/L (14-59) Alkaline Phosphatase 76 U/L (46-116) Creatine Kinase 74 U/L (26-192) Creatine Kinase MB (Mass) 1.3 ng/mL (0.0-3.6) Creatine Kinase MB Relative Index % (0-4) Troponin I Quantitative < 0.017 ng/mL (0.000-0.055) XW-Qql-E-Type Natriuretic Peptide 2062 pg/mL (0-124) Total Protein 7.0 g/dL (6.4-8.2) Albumin 3.6 g/dL (3.4-5.0) Albumin/Globulin Ratio 1.1 (1.0-1.7) Glucose (Fingerstick) 115 mg/dL (70-99) 131 mg/dL (70-99) Test 11/18/18 06:30 11/18/18 07:35 Troponin I Quantitative 0.018 ng/mL (0.000-0.055) Glucose (Fingerstick) 119 mg/dL (70-99) Review of Systems Review of Systems A 14 point ROS was completed with the following noted as positive: Other systems reviewed and negative. \CONSTITUTIONAL: No fever or chills EYES: No recent changes SKIN: No rash or itching CARDIOVASCULAR: No chest pain, syncope, palpitations, or edema RESPIRATORY: No SOB or cough GASTROINTESTINAL: No nausea, vomiting or abdominal pain NEUROLOGICAL: No headaches or weakness, dizzy ENDOCRINE: No cold or heat intolerance GENITOURINARY: No urgency or frequency of urination MUSCULOSKELETAL: No back pain or joint pain LYMPHATICS: No enlarged lymph nodes PSYCHIATRIC: No anxiety or depression Comment Review of Relevant I have reviewed the following items gretchen (where applicable) has been applied. Labs Laboratory Tests Test 11/17/18 11:55 11/17/18 17:01 11/17/18 21:13 11/18/18 04:50 White Blood Count 7.3 x10^3/uL (4.0-11.0) 5.7 x10^3/uL (4.0-11.0) Red Blood Count 4.39 x10^6/uL (3.50-5.40) 3.75 x10^6/uL (3.50-5.40) Hemoglobin 12.9 g/dL (12.0-15.5) 11.2 g/dL (12.0-15.5) Hematocrit 39.2 % (36.0-47.0) 33.7 % (36.0-47.0) Mean Corpuscular Volume 89 fL (79-100) 90 fL (79-100) Mean Corpuscular Hemoglobin 29 pg (25-35) 30 pg (25-35) Mean Corpuscular Hemoglobin Concent 33 g/dL (31-37) 33 g/dL (31-37) Red Cell Distribution Width 14.9 % (11.5-14.5) 14.7 % (11.5-14.5) Platelet Count 248 x10^3/uL (140-400) 192 x10^3/uL (140-400) Neutrophils (%) (Auto) 78 % (31-73) 70 % (31-73) Lymphocytes (%) (Auto) 15 % (24-48) 21 % (24-48) Monocytes (%) (Auto) 4 % (0-9) 5 % (0-9) Eosinophils (%) (Auto) 2 % (0-3) 3 % (0-3) Basophils (%) (Auto) 1 % (0-3) 1 % (0-3) Neutrophils # (Auto) 5.7 x10^3/uL (1.8-7.7) 4.0 x10^3/uL (1.8-7.7) Lymphocytes # (Auto) 1.1 x10^3/uL (1.0-4.8) 1.2 x10^3/uL (1.0-4.8) Monocytes # (Auto) 0.3 x10^3/uL (0.0-1.1) 0.3 x10^3/uL (0.0-1.1) Eosinophils # (Auto) 0.2 x10^3/uL (0.0-0.7) 0.2 x10^3/uL (0.0-0.7) Basophils # (Auto) 0.1 x10^3/uL (0.0-0.2) 0.0 x10^3/uL (0.0-0.2) Prothrombin Time 12.8 SEC (11.7-14.0) Prothromb Time International Ratio 1.0 (0.8-1.1) Activated Partial Thromboplast Time 24 SEC (24-38) Sodium Level 141 mmol/L (136-145) Potassium Level 4.4 mmol/L (3.5-5.1) Chloride Level 103 mmol/L (98-107) Carbon Dioxide Level 27 mmol/L (21-32) Anion Gap 11 (6-14) Blood Urea Nitrogen 39 mg/dL (7-20) Creatinine 1.4 mg/dL (0.6-1.0) Estimated GFR (Cockcroft-Gault) 36.8 BUN/Creatinine Ratio 28 (6-20) Glucose Level 151 mg/dL (70-99) Calcium Level 9.5 mg/dL (8.5-10.1) Magnesium Level 1.5 mg/dL (1.8-2.4) Total Bilirubin 0.6 mg/dL (0.2-1.0) Aspartate Amino Transf (AST/SGOT) 16 U/L (15-37) Alanine Aminotransferase (ALT/SGPT) 15 U/L (14-59) Alkaline Phosphatase 76 U/L (46-116) Creatine Kinase 74 U/L (26-192) Creatine Kinase MB (Mass) 1.3 ng/mL (0.0-3.6) Creatine Kinase MB Relative Index % (0-4) Troponin I Quantitative < 0.017 ng/mL (0.000-0.055) UT-Ijd-W-Type Natriuretic Peptide 2062 pg/mL (0-124) Total Protein 7.0 g/dL (6.4-8.2) Albumin 3.6 g/dL (3.4-5.0) Albumin/Globulin Ratio 1.1 (1.0-1.7) Glucose (Fingerstick) 115 mg/dL (70-99) 131 mg/dL (70-99) Test 11/18/18 06:30 11/18/18 07:35 Troponin I Quantitative 0.018 ng/mL (0.000-0.055) Glucose (Fingerstick) 119 mg/dL (70-99) Laboratory Tests Test 11/17/18 11:55 11/17/18 17:01 11/17/18 21:13 11/18/18 04:50 White Blood Count 7.3 x10^3/uL (4.0-11.0) 5.7 x10^3/uL (4.0-11.0) Red Blood Count 4.39 x10^6/uL (3.50-5.40) 3.75 x10^6/uL (3.50-5.40) Hemoglobin 12.9 g/dL (12.0-15.5) 11.2 g/dL (12.0-15.5) Hematocrit 39.2 % (36.0-47.0) 33.7 % (36.0-47.0) Mean Corpuscular Volume 89 fL (79-100) 90 fL (79-100) Mean Corpuscular Hemoglobin 29 pg (25-35) 30 pg (25-35) Mean Corpuscular Hemoglobin Concent 33 g/dL (31-37) 33 g/dL (31-37) Red Cell Distribution Width 14.9 % (11.5-14.5) 14.7 % (11.5-14.5) Platelet Count 248 x10^3/uL (140-400) 192 x10^3/uL (140-400) Neutrophils (%) (Auto) 78 % (31-73) 70 % (31-73) Lymphocytes (%) (Auto) 15 % (24-48) 21 % (24-48) Monocytes (%) (Auto) 4 % (0-9) 5 % (0-9) Eosinophils (%) (Auto) 2 % (0-3) 3 % (0-3) Basophils (%) (Auto) 1 % (0-3) 1 % (0-3) Neutrophils # (Auto) 5.7 x10^3/uL (1.8-7.7) 4.0 x10^3/uL (1.8-7.7) Lymphocytes # (Auto) 1.1 x10^3/uL (1.0-4.8) 1.2 x10^3/uL (1.0-4.8) Monocytes # (Auto) 0.3 x10^3/uL (0.0-1.1) 0.3 x10^3/uL (0.0-1.1) Eosinophils # (Auto) 0.2 x10^3/uL (0.0-0.7) 0.2 x10^3/uL (0.0-0.7) Basophils # (Auto) 0.1 x10^3/uL (0.0-0.2) 0.0 x10^3/uL (0.0-0.2) Prothrombin Time 12.8 SEC (11.7-14.0) Prothromb Time International Ratio 1.0 (0.8-1.1) Activated Partial Thromboplast Time 24 SEC (24-38) Sodium Level 141 mmol/L (136-145) Potassium Level 4.4 mmol/L (3.5-5.1) Chloride Level 103 mmol/L (98-107) Carbon Dioxide Level 27 mmol/L (21-32) Anion Gap 11 (6-14) Blood Urea Nitrogen 39 mg/dL (7-20) Creatinine 1.4 mg/dL (0.6-1.0) Estimated GFR (Cockcroft-Gault) 36.8 BUN/Creatinine Ratio 28 (6-20) Glucose Level 151 mg/dL (70-99) Calcium Level 9.5 mg/dL (8.5-10.1) Magnesium Level 1.5 mg/dL (1.8-2.4) Total Bilirubin 0.6 mg/dL (0.2-1.0) Aspartate Amino Transf (AST/SGOT) 16 U/L (15-37) Alanine Aminotransferase (ALT/SGPT) 15 U/L (14-59) Alkaline Phosphatase 76 U/L (46-116) Creatine Kinase 74 U/L (26-192) Creatine Kinase MB (Mass) 1.3 ng/mL (0.0-3.6) Creatine Kinase MB Relative Index % (0-4) Troponin I Quantitative < 0.017 ng/mL (0.000-0.055) AX-Dwf-G-Type Natriuretic Peptide 2062 pg/mL (0-124) Total Protein 7.0 g/dL (6.4-8.2) Albumin 3.6 g/dL (3.4-5.0) Albumin/Globulin Ratio 1.1 (1.0-1.7) Glucose (Fingerstick) 115 mg/dL (70-99) 131 mg/dL (70-99) Test 11/18/18 06:30 11/18/18 07:35 Troponin I Quantitative 0.018 ng/mL (0.000-0.055) Glucose (Fingerstick) 119 mg/dL (70-99) Medications Current Medications Albuterol/ Ipratropium (Duoneb) 3 ml RTQID NEB Last administered on 11/18/18 08:03; Start 11/17/18 at 20:00; Stop 11/17/18 at 20:00; Status DC Aspirin (EveryMove Aspirin) 325 mg DAILYWBKFT PO Last administered on 11/18/18 08:32; Start 11/18/18 at 08:00 Cyanocobalamin (Vitamin B-12) 1,000 mcg DAILY PO Last administered on 11/18/18 08:31; Start 11/18/18 at 09:00 Diazepam (Valium) 5 mg PRN BID PRN PO ANXIETY / AGITATION Last administered on 11/17/18at 21:13; Start 11/17/18 at 17:15 Furosemide (Lasix) 80 mg DAILY PO Last administered on 11/18/18 08:31; Start 11/18/18 at 09:00 Hydroxyzine HCl (Atarax) 25 mg BID PO Last administered on 11/18/18 08:31; Start 11/17/18 at 21:00 Lisinopril (Prinivil) 10 mg DAILY PO ; Start 11/18/18 at 09:00; Stop 11/18/18 at 09:00; Status DC Metoprolol Tartrate (Lopressor) 12.5 mg BID PO Last administered on 11/17/18at 20:39; Start 11/17/18 at 21:00; Stop 11/18/18 at 08:20; Status DC Montelukast Sodium (Singulair) 10 mg HS PO Last administered on 11/17/18at 20:40; Start 11/17/18 at 21:00 Oxycodone/ Acetaminophen (Percocet 10/325) 1 tab PRN Q6HRS PRN PO PAIN; Start 11/17/18 at 17:15 Pantoprazole Sodium (Protonix) 40 mg DAILYAC PO Last administered on 11/18/18 08:31; Start 11/18/18 at 07:30 Potassium Chloride (Klor-Con) 10 meq BIDWMEALS PO Last administered on 11/18/18 08:32; Start 11/17/18 at 17:30 Fluticasone Propionate (Flonase) 2 spray DAILY NS Last administered on 11/18/18 08:32; Start 11/18/18 at 09:00 Non-Formulary Medication (Fluticasone/ Salmeterol (Advair 250-50 Diskus)) 1 inh BID IH ; Start 11/17/18 at 21:00; Status UNV Metformin HCl (Glucophage) 1,000 mg BIDWMEALS PO Last administered on 11/18/18 08:32; Start 11/17/18 at 17:30 Sennosides (Senna) 8.6 mg DAILY PO Last administered on 11/18/18 08:31; Start 11/18/18 at 09:00 Simvastatin (Zocor) 40 mg QHS PO Last administered on 11/17/18 20:39; Start 11/17/18 at 21:00 Linagliptin (Tradjenta) 5 mg DAILY PO Last administered on 11/18/18 08:31; Start 11/18/18 at 09:00 Non-Formulary Medication (Tiotropium [place] (Spiriva)) 1 cap DAILY IH ; Start 11/18/18 at 09:00; Status UNV Enoxaparin Sodium (Lovenox 40mg Syringe) 40 mg Q24H SQ ; Start 11/17/18 at 18:00 Budesonide (Pulmicort) 0.5 mg RTBID NEB Last administered on 11/18/18 08:01; Start 11/17/18 at 20:00 Albuterol/ Ipratropium (Duoneb) 3 ml RTQID NEB Last administered on 11/18/18at 08:04; Start 11/17/18 at 20:00 Active Scripts Active Reported Voltaren (Diclofenac Sodium) 100 Gm Gel..gram. 1 Gm TP PRN TID PRN Acetaminophen 500 Mg Tablet 1 Tab PO PRN Q4HRS PRN Emetrol Oral Solution (Phosp Acid/Dextrose/Fructose) 118 Ml Solution 118 Ml PO PRN BID PRN Prazosin Hcl 1 Mg Capsule 2 Cap PO QHS Krill Oil 300 Mg Softgel (Krill/[place]-3/Dha/Epa/Lipids) 1 Each Capsule 1 Each PO DAILY Alendronate Sodium 70 Mg Tablet 1 Tab PO WEEKLY Valium (Diazepam) 2 Mg Tablet 2 Mg PO BID Aspirin 81 Mg Tab.chew 1 Tab PO DAILY Percocet 10-325 Mg Tablet (Oxycodone/Acetaminophen) 1 Each Tablet 1 Tab PO PRN Q6HRS PRN Metformin Hcl 1,000 Mg Tablet 1,000 Mg PO BIDWMEALS Zocor (Simvastatin) 40 Mg Tablet 40 Mg PO HS Advair 250-50 Diskus (Fluticasone/Salmeterol) 1 Each Disk.w.dev 1 Inh IH BID Potassium Chloride 10 Meq Tablet.er 10 Meq PO DAILY Spiriva (Tiotropium [place]) 18 Mcg Cap.w.dev 2 Cap IH DAILY Lisinopril 10 Mg Tablet 10 Mg PO DAILY Senokot (Sennosides) 8.6 Mg Tablet 8.6 Mg PO DAILY Lasix (Furosemide) 40 Mg Tablet 40 Mg PO DAILY Metoprolol Tartrate 25 Mg Tablet 12.5 Mg PO BID Vitals/I & O Vital Sign - Last 24 Hours 11/17/18 11/17/18 11/17/18 11/17/18 11:47 12:21 13:04 14:44 Temp 98.0 98.0 Pulse 117 102 120 96 Resp 18 B/P (MAP) 129/78 (95) 136/70 (92) 97/71 (80) 118/66 (83) Pulse Ox 98 96 90 97 O2 Delivery Nasal Cannula Nasal Cannula Nasal Cannula Nasal Cannula O2 Flow Rate 2.0 3.0 3.0 3.0 11/17/18 11/17/18 11/17/18 11/17/18 15:14 15:44 16:14 17:00 Temp 97.9 97.9 Pulse 98 92 100 97 Resp 18 18 18 22 B/P (MAP) 119/66 (83) 125/57 (79) 113/73 (86) 112/65 (81) Pulse Ox 95 95 96 93 O2 Delivery Nasal Cannula Room Air Nasal Cannula Room Air O2 Flow Rate 3.0 3.0 3.0 11/17/18 11/17/18 11/17/18 11/17/18 17:36 19:53 19:56 20:00 Temp 98.2 98.2 Pulse 70 Resp 20 B/P (MAP) 120/51 (74) Pulse Ox 99 98 O2 Delivery Room Air Room Air Nasal Cannula Room Air O2 Flow Rate 2.0 2.0 11/17/18 11/17/18 11/18/18 11/18/18 20:39 23:59 03:26 07:00 Temp 98.5 98.7 98.5 98.5 98.7 98.5 Pulse 63 65 81 Resp 16 16 20 B/P (MAP) 120/51 110/55 (73) 115/71 (86) 115/50 (71) Pulse Ox 95 99 97 O2 Delivery Room Air Room Air Room Air 11/18/18 08:04 Pulse Ox 98 O2 Delivery Nasal Cannula O2 Flow Rate 2.0 Intake and Output 11/17/18 11/17/18 11/18/18 14:59 22:59 06:59 Intake Total 400 ml 440 ml Balance 400 ml 440 ml RACHEL VILLALBA MD Nov 18, 2018 10:41
[2018-11-18 11:30] VITALS: BP 107/62
[2018-11-18] MEDS ORDERED: DIGOXIN IV 500 MCG/2 ML AMPUL. IV ONE (12:30)
--- NOTE | 2018-11-18 12:30 | NUR ---
This RN noticed pt heart rate between 130's-140's. Pt is asymptomatic, sitting in bed, eating lunch. Pt stated "I feel fine." Cardiology consult was already placed, this RN notified XOCHITL Birch of the heart rate, and orders received for digoxin 500 IV x1. New Peripheral IV started. Will continue to monitor.
--- NOTE | 2018-11-18 13:51 | PDOC2 ---
NIDIA ROSEN HALL MONITOR 11/18/18 1351: CARDIAC CONSULT DATE OF CONSULT Date of Consult DATE: 11/18/18 TIME: 13:26 REASON FOR CONSULT Reason for Consult: hypotension while at nuc med REFERRING PHYSICIAN Referring Physician: Star SOURCE Source: Chart review, Patient HISTORY OF PRESENT ILLNESS HISTORY OF PRESENT ILLNESS This is a pleasant 72 yo female admitted for noted low BP and fast HR upon completion of her stress test yesterday. At home she has not been having any symptoms except that she has been feeling fatigue in the last few days. Denies any chest pain, SOA, palpitations or frequent dizziness, falls or any passing out. She has been complaint with her medications. No previous nausea vomiting or diarrhea nor any issues with fever or chills. Upon completion of her stress test yesterday she was noted with hypotension and eventually noted with AFIB RVR. Overnight her HR improved but during the day her HR started speeding up again to 120- to 140s. She remains to have no symptoms and her BP has improved. PAST MEDICAL HISTORY Cardiovascular: CAD, HTN, Hyperlipidemia, Other (mld carotid artery disease) Pulmonary: Asthma, COPD CENTRAL NERVOUS SYSTEM: Carpal Tunnel Syndrome, CVA GI: Constipation, GERD Heme/Onc: B12 deficiency Hepatobiliary: No pertinent hx, Cholelithiasis Psych: Anxiety Musculoskeletal: Osteoarthritis Renal/: Chronic renal insuff, Urinary Incontinence Endocrine: Diabetes (2) PAST SURGICAL HISTORY Past Surgical History: Appendectomy, Cholecystectomy, Tonsillectomy, Hysterectomy, Other (PCI/stent) FAMILY HISTORY Family History noncontributory to CV SOCIAL HISTORY Smoke: No ALCOHOL: none Drugs: None CURRENT MEDICATIONS CURRENT MEDICATIONS Current Medications Medications (Trade) Dose Ordered Sig/Armond Route PRN Reason Start Time Stop Time Status Last Admin Dose Admin Albuterol/ Ipratropium (Duoneb) 3 ml RTQID NEB 11/17/18 20:00 11/17/18 20:00 DC 11/18/18 08:03 Aspirin (Maurice Aspirin) 325 mg DAILYWBKFT PO 11/18/18 08:00 11/18/18 08:32 Cyanocobalamin (Vitamin B-12) 1,000 mcg DAILY PO 11/18/18 09:00 11/18/18 08:31 Diazepam (Valium) 5 mg PRN BID PRN PO ANXIETY / AGITATION 11/17/18 17:15 11/17/18 21:13 Furosemide (Lasix) 80 mg DAILY PO 11/18/18 09:00 11/18/18 08:31 Hydroxyzine HCl (Atarax) 25 mg BID PO 11/17/18 21:00 11/18/18 08:31 Metoprolol Tartrate (Lopressor) 12.5 mg BID PO 11/17/18 21:00 11/18/18 08:20 DC 11/17/18 20:39 Montelukast Sodium (Singulair) 10 mg HS PO 11/17/18 21:00 11/17/18 20:40 Pantoprazole Sodium (Protonix) 40 mg DAILYAC PO 11/18/18 07:30 11/18/18 08:31 Potassium Chloride (Klor-Con) 10 meq BIDWMEALS PO 11/17/18 17:30 11/18/18 08:32 Fluticasone Propionate (Flonase) 2 spray DAILY NS 11/18/18 09:00 11/18/18 08:32 Metformin HCl (Glucophage) 1,000 mg BIDWMEALS PO 11/17/18 17:30 11/18/18 08:32 Sennosides (Senna) 8.6 mg DAILY PO 11/18/18 09:00 11/18/18 08:31 Simvastatin (Zocor) 40 mg QHS PO 11/17/18 21:00 11/17/18 20:39 Linagliptin (Tradjenta) 5 mg DAILY PO 11/18/18 09:00 11/18/18 08:31 Budesonide (Pulmicort) 0.5 mg RTBID NEB 11/17/18 20:00 11/18/18 08:01 Albuterol/ Ipratropium (Duoneb) 3 ml RTQID NEB 11/17/18 20:00 11/18/18 11:46 Digoxin (Lanoxin) 500 mcg 1X ONCE IV 11/18/18 12:30 11/18/18 12:31 DC 11/18/18 12:30 ALLERGIES ALLERGIES: Coded Allergies: Penicillins (Verified Allergy, Intermediate, Hives, 04/01/17) ROS Review of System 14 point ROS evaluated with pertinent positives noted per HPI PHYSICAL EXAM General: Alert, Oriented X3, Cooperative, No acute distress HEENT: Atraumatic, Mucous membr. moist/pink Lungs: Other (diminished bases) Heart: Other (AFIB/flutter with RVR) Abdomen: Soft, No tenderness, Other (obese) Extremities: No cyanosis, Other (1+ bilateral LE pitting edema) Skin: No breakdown, No significant lesion Neuro: Normal speech, Sensation intact Psych/Mental Status: Mental status NL, Mood NL MUSCULOSKELETAL: Osteoarthritic changes both hands VITALS/I&O VITALS/I&O: Vital Signs Date Time Temp Pulse Resp B/P (MAP) Pulse Ox O2 Delivery O2 Flow Rate FiO2 11/18/18 12:30 144 11/18/18 11:48 94 Nasal Cannula 2.0 11/18/18 11:30 97.8 18 107/62 (77) 97.8 I & O 11/17/18 11/17/18 11/18/18 15:00 23:00 07:00 Intake Total 400 ml 440 ml Balance 400 ml 440 ml LABS Lab: Laboratory Tests Test 11/17/18 17:01 11/17/18 21:13 11/18/18 04:50 11/18/18 06:30 Glucose (Fingerstick) 115 mg/dL (70-99) H 131 mg/dL (70-99) H White Blood Count 5.7 x10^3/uL (4.0-11.0) Red Blood Count 3.75 x10^6/uL (3.50-5.40) Hemoglobin 11.2 g/dL (12.0-15.5) L Hematocrit 33.7 % (36.0-47.0) L Mean Corpuscular Volume 90 fL (79-100) Mean Corpuscular Hemoglobin 30 pg (25-35) Mean Corpuscular Hemoglobin Concent 33 g/dL (31-37) Red Cell Distribution Width 14.7 % (11.5-14.5) H Platelet Count 192 x10^3/uL (140-400) Neutrophils (%) (Auto) 70 % (31-73) Lymphocytes (%) (Auto) 21 % (24-48) L Monocytes (%) (Auto) 5 % (0-9) Eosinophils (%) (Auto) 3 % (0-3) Basophils (%) (Auto) 1 % (0-3) Neutrophils # (Auto) 4.0 x10^3/uL (1.8-7.7) Lymphocytes # (Auto) 1.2 x10^3/uL (1.0-4.8) Monocytes # (Auto) 0.3 x10^3/uL (0.0-1.1) Eosinophils # (Auto) 0.2 x10^3/uL (0.0-0.7) Basophils # (Auto) 0.0 x10^3/uL (0.0-0.2) Troponin I Quantitative 0.018 ng/mL (0.000-0.055) Test 11/18/18 07:35 11/18/18 11:50 Glucose (Fingerstick) 119 mg/dL (70-99) H 96 mg/dL (70-99) Laboratory Tests 11/18/18 04:50 ECHOCARDIOGRAM ECHOCARDIOGRAM <Conclusion> The left ventricular systolic function is normal and the ejection fraction is within normal range. LV EF 50% Transmitral Doppler flow pattern is Grade I-abnormal relaxation pattern. The left atrium size is normal. The right atrium size is normal. The aortic valve is thickened but opens well. Mitral annular calcification is mild. The mitral valve is calcified but opens well. Doppler and Color-flow revealed trace to mild mitral regurgitation. Doppler and Color Flow revealed trace to mild tricuspid regurgitation. The pulmonary valve is normal in structure and function. There is no evidence of significant pericardial effusion. DATE: 04/02/17 1632 STRESS TEST STRESS TEST Conclusion 1. Abnormal EKG response with afib with RVR during stress. 2. Normal perfusion at stress/rest. 3. Abnormal TID at 1.43 suggestive of balanced ischemia. 4. Normal EF at 61% 5. Moderate risk study DATE: 11/17/18 1354 ASSESSMENT/PLAN ASSESSMENT/PLAN 1. AFIB/Aflutter with RVR:. Triggered during stress test, likely ischemic induced. 2. Hypotension: due to RVR. Better today 3. CAD: stents in the past. 4. Abnormal MPI: see above 5. HTN 6. DM2 7. HLP 8. Obesity 9. CKD: possibly stage 3 10. ZAC? 11. Chronic diastolic CHF: compensated 12. Hx of CVA Recommendations 1, AFIB appears to be new per review. Dig x1. Metoprolol IV. Will optimize BB, uptitrate per rate and BP trend. 2. BMP and Mg. Will replace Mg and K as warranted. 3. TSH, lipids. ASA. Strat on heparin drip 4. TTE today. 5. Will optimize over the weekend and plan for LHC and/or JUANY/CVN on Wednesday. EMELINA VIGIL MD 11/19/18 0924: CARDIAC CONSULT ASSESSMENT/PLAN ASSESSMENT/PLAN Pt. seen and examined. Agree with above TARIFF COUNSEL note. Late entry for 11/18/2018. Plan for LHC on wednesday. Supportive care. Thanks NIDIA ROSEN APRN Nov 18, 2018 13:51 EMELINA VIGIL MD Nov 19, 2018 09:24
[2018-11-18] MEDS ORDERED: METOPROLOL TARTRATE 5 MG/5 ML VIAL. IVP ONE (14:00)
[2018-11-18 14:03] LABS: CALCIUM 9.1 mg/dL (8.5-10.1); CREATININE 1.5 mg/dL (0.6-1.0); GFR 33.9; POTASSIUM 4.7 mmol/L (3.5-5.1)
[2018-11-18 14:40] LABS: CHOLESTEROL/HDL RATIO 2.4
--- NOTE | 2018-11-18 14:45 | NUR ---
Pt transferred to room 201. Report given to JANNETH Luz. All belongings left with patient at the time of transfer. Pt motorized wheelchair taken down to patient after the transfer.
--- NOTE | 2018-11-18 15:25 | EKG ---
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
[2018-11-18] MEDS ORDERED: MAGNESIUM SULFATE 2GM 50 ML IV ONE (16:00)
[2018-11-18] MEDS ORDERED: HEPARIN for IV BOLUS 10,000 UNIT/10 ML VIAL. IV PRN (17:15)
[2018-11-18] MEDS: HEPARIN 25,000UTS/500ML PREMIX 500 ML IV PRN (17:48)
[2018-11-18 19:35] VITALS: BP 125/54
[2018-11-18] MEDS ORDERED: APIXABAN 5 MG TABLET. PO SCH (21:00)
[2018-11-18] MEDS: SIMVASTATIN 40 MG TABLET. PO SCH (21:06)
[2018-11-18] MEDS: MONTELUKAST SODIUM 10 MG TABLET. PO SCH (21:07)
[2018-11-18] MEDS: diazePAM 5 MG TABLET PO PRN (21:07)
[2018-11-18] MEDS: METOPROLOL TART IMMED RELEASE 25 MG TABLET. PO SCH (21:07)
[2018-11-18 23:31] VITALS: BP 142/67
[2018-11-19 03:00] VITALS: BP 120/62
[2018-11-19 07:00] VITALS: BP 128/71
[2018-11-19] MEDS: IPRATRPIUM/ALBUTEROL 0.5/2.5MG 3 ML NEBU. NEB SCH ×4 (07:47→20:06)
[2018-11-19] MEDS: BUDESONIDE 0.5 MG/2 ML NEBU. NEB SCH ×2 (07:47→20:07)
[2018-11-19] MEDS: CYANOCOBALAMIN (VITAMIN B-12) 1,000 MCG TABLET. PO SCH (08:44)
[2018-11-19] MEDS: FUROSEMIDE 40 MG TABLET. PO SCH (08:45)
[2018-11-19] MEDS: metFORMIN 500 MG TABLET PO SCH ×2 (08:45→17:06)
[2018-11-19] MEDS: LINAGLIPTIN 5 MG TABLET PO SCH (08:45)
[2018-11-19] MEDS: METOPROLOL TART IMMED RELEASE 25 MG TABLET. PO SCH ×2 (08:45→21:13)
[2018-11-19] MEDS: ASPIRIN 325 MG TABLET PO SCH (08:45)
[2018-11-19] MEDS: SENNOSIDES 8.6 MG TABLET PO SCH (08:45)
[2018-11-19] MEDS: POTASSIUM CHLORIDE 10 MEQ TABLET.ER. PO SCH ×2 (08:45→17:07)
[2018-11-19] MEDS: PANTOPRAZOLE 40 MG TABLET.DR. PO SCH (08:46)
[2018-11-19] MEDS: hydrOXYzine 25 MG TABLET PO SCH ×2 (09:00→21:13)
[2018-11-19] MEDS: FLUTICASONE 50MCG/NASAL SPRAY 16GM BOTTLE. NS SCH (09:01)
[2018-11-19 11:00] VITALS: BP 106/56
--- NOTE | 2018-11-19 12:00 | PDOC ---
CARDIOLOGY PROGRESS NOTE SUBJECTIVE: No acute events overnight. Still feels soa. Tired today OBJECTIVE: Vital Signs/I&O: Vital Signs Date Time Temp Pulse Resp B/P (MAP) Pulse Ox O2 Delivery O2 Flow Rate FiO2 11/19/18 11:40 Nasal Cannula 2.0 11/19/18 11:00 98.0 65 24 106/56 (73) 95 98.0 I & O 11/18/18 11/18/18 11/19/18 15:00 23:00 07:00 Intake Total 600 ml Output Total 300 ml 800 ml Balance -300 ml -200 ml Objective: a/o x 3. NAD CVS: irr irr Clear lungs anteriorly soft abdomen no edema. 2+ radial pulses. CURRENT MEDICATIONS: metoprolol, hep gtt, asa, simvastatin DIAGNOSTIC TESTING: Tele - afib, rate controlled. Cr 1.5 Labs: Laboratory Tests Test 11/19/18 00:10 11/19/18 06:55 11/19/18 08:22 11/19/18 10:15 Heparin Anti-Xa Act, Unfractionated 0.14 IU/mL (0.30-0.70) L 0.45 IU/mL (0.30-0.70) Glucose (Fingerstick) 112 mg/dL (70-99) H 141 mg/dL (70-99) H ASSESSMENT: 1. Afib with RVR on anticoagulation with eliquis, on hold for C on wednesday. on hep gtt 2. HTN 3. CAD - abnormal stress test 4. COPD PLAN: 1. lasix decreased to 40mg daily 2. Repeat BMP in a.m. 3. Plan LHC on wednesday. Thanks. will follow along EMELINA VIGIL MD Nov 19, 2018 12:00
--- NOTE | 2018-11-19 12:19 | PDOC ---
[employer] PROGRESS NOTE Chief Complaint Chief Complaint Dizziness and hypotension at [facility] Known CAD, 40% blockage Obesity BMI 38 Remote CVA left parietal area Diabetes type 2 Dyslipidemia CK D stage III COPD, stable [place] resident History of Present Illness History of Present Illness 11/19/18 Pt seen and examined DW RN Appreciate cardiology input Vitals/I&O Vitals/I&O: Vital Signs Date Time Temp Pulse Resp B/P (MAP) Pulse Ox O2 Delivery O2 Flow Rate FiO2 11/19/18 11:40 Nasal Cannula 2.0 11/19/18 11:00 98.0 65 24 106/56 (73) 95 98.0 I & O 11/18/18 11/18/18 11/19/18 15:00 23:00 07:00 Intake Total 600 ml Output Total 300 ml 800 ml Balance -300 ml -200 ml Physical Exam General: Alert, Oriented X3, Cooperative, No acute distress Heart: Other (AFIB/flutter with RVR) Lungs: Clear, Other (decreased breath sounds) Abdomen: Soft, No tenderness, Other (obese) Extremities: No cyanosis, Other (1+ bilateral LE pitting edema) Skin: No breakdown, No significant lesion Labs Labs: Laboratory Tests Test 11/19/18 00:10 11/19/18 06:55 11/19/18 08:22 11/19/18 10:15 Heparin Anti-Xa Act, Unfractionated 0.14 IU/mL (0.30-0.70) 0.45 IU/mL (0.30-0.70) Glucose (Fingerstick) 112 mg/dL (70-99) 141 mg/dL (70-99) Review of Systems Review of Systems: CO tachycardia CO fatigue Assessment and Plan Assessmemt and Plan 11/19/18 Assessment Dizziness and hypotension at [facility] Known CAD, 40% blockage Obesity BMI 38 Remote CVA left parietal area Diabetes type 2 Dyslipidemia CK D stage III COPD, stable [place] resident Plan Heparin drip radiation monitor Await cardiac deposition Full code PTOT Home meds Comment Review of Relevant I have reviewed the following items gretchen (where applicable) has been applied. Medications: Current Medications Medications (Trade) Dose Ordered Sig/Armond Route PRN Reason Start Time Stop Time Status Last Admin Dose Admin Digoxin (Lanoxin) 500 mcg 1X ONCE IV 11/18/18 12:30 11/18/18 12:31 DC 11/18/18 12:30 Metoprolol Tartrate (Lopressor Vial) 5 mg 1X ONCE IVP 11/18/18 14:00 11/18/18 14:01 DC 11/18/18 14:21 Magnesium Sulfate 50 ml @ 25 mls/hr 1X ONCE IV 11/18/18 16:00 11/18/18 17:59 DC 11/18/18 15:38 Metoprolol Tartrate (Lopressor) 25 mg BID PO 11/18/18 21:00 11/19/18 08:45 Heparin Sodium/ Dextrose 500 ml @ 0 mls/hr CONT PRN IV SEE I/O RECORD 11/18/18 17:15 11/18/18 17:48 Heparin Sodium (Porcine) (Heparin Sodium) 2,500 unit PRN Q6HRS PRN IV FOR UFH LEVEL LESS THAN 0.2 11/18/18 17:15 11/19/18 01:03 EKATERINA ALTAMIRANO III DO Nov 19, 2018 12:19
[2018-11-19 15:00] VITALS: BP 112/58
[2018-11-19] MEDS: HEPARIN 25,000UTS/500ML PREMIX 500 ML IV PRN (17:11)
[2018-11-19 19:55] VITALS: BP 114/65
[2018-11-19] MEDS: diazePAM 5 MG TABLET PO PRN (21:13)
[2018-11-19] MEDS: MONTELUKAST SODIUM 10 MG TABLET. PO SCH (21:13)
[2018-11-19] MEDS: SIMVASTATIN 40 MG TABLET. PO SCH (21:13)
[2018-11-19 23:15] VITALS: BP 130/63
[2018-11-20 03:49] VITALS: BP 123/59
[2018-11-20 05:25] LABS: BASO % 0 % (0-3); EOS # 0.2 x10^3/uL (0.0-0.7); EOS % 3 % (0-3); HEMATOCRIT 32.4 % (36.0-47.0); HEMOGLOBIN 10.9 g/dL (12.0-15.5); LYMPH # 1.3 x10^3/uL (1.0-4.8); LYMPH % 19 % (24-48); MEAN CORPUSCULAR HEMOGLOBIN 30 pg (25-35); MEAN CORPUSCULAR HGB CONC 34 g/dL (31-37); MEAN CORPUSCULAR VOLUME 90 fL (79-100); MONO # 0.4 x10^3/uL (0.0-1.1); MONO % 5 % (0-9); NEUT % 73 % (31-73); PLATELET COUNT 187 x10^3/uL (140-400); RED BLOOD COUNT 3.61 x10^6/uL (3.50-5.40); RED CELL DISTRIBUTION WIDTH 14.8 % (11.5-14.5); WHITE BLOOD COUNT 6.8 x10^3/uL (4.0-11.0)
[2018-11-20 05:55] LABS: CALCIUM 8.7 mg/dL (8.5-10.1); CREATININE 1.8 mg/dL (0.6-1.0); GFR 27.5; POTASSIUM 4.4 mmol/L (3.5-5.1)
[2018-11-20 07:00] VITALS: BP 99/51
[2018-11-20] MEDS: IPRATRPIUM/ALBUTEROL 0.5/2.5MG 3 ML NEBU. NEB SCH ×4 (08:01→19:51)
[2018-11-20] MEDS: BUDESONIDE 0.5 MG/2 ML NEBU. NEB SCH ×2 (08:01→19:51)
[2018-11-20] MEDS: hydrOXYzine 25 MG TABLET PO SCH ×2 (08:47→20:27)
[2018-11-20] MEDS: ASPIRIN 325 MG TABLET PO SCH (08:47)
[2018-11-20] MEDS: PANTOPRAZOLE 40 MG TABLET.DR. PO SCH (08:47)
[2018-11-20] MEDS: SENNOSIDES 8.6 MG TABLET PO SCH (08:48)
[2018-11-20] MEDS: FUROSEMIDE 40 MG TABLET. PO SCH (08:48)
[2018-11-20] MEDS: POTASSIUM CHLORIDE 10 MEQ TABLET.ER. PO SCH ×2 (08:49→17:18)
[2018-11-20] MEDS: CYANOCOBALAMIN (VITAMIN B-12) 1,000 MCG TABLET. PO SCH (08:49)
[2018-11-20] MEDS: METOPROLOL TART IMMED RELEASE 25 MG TABLET. PO SCH ×2 (08:49→20:27)
[2018-11-20] MEDS: metFORMIN 500 MG TABLET PO SCH ×2 (08:49→17:18)
[2018-11-20] MEDS: LINAGLIPTIN 5 MG TABLET PO SCH (08:49)
[2018-11-20] MEDS: FLUTICASONE 50MCG/NASAL SPRAY 16GM BOTTLE. NS SCH (08:52)
[2018-11-20 11:00] VITALS: BP 112/61
[2018-11-20] MEDS: HEPARIN 25,000UTS/500ML PREMIX 500 ML IV PRN (14:14)
[2018-11-20 15:00] VITALS: BP 102/68
--- NOTE | 2018-11-20 15:03 | PDOC ---
[employer] PROGRESS NOTE Chief Complaint Chief Complaint Dizziness and hypotension at [facility] [place] med Known CAD, 40% blockage Obesity BMI 38 Remote CVA left parietal area Diabetes type 2 Dyslipidemia CK D stage III COPD, stable [place] resident History of Present Illness History of Present Illness 11/20/18 Pt seen and examined Still in AFIB and good rate control 11/19/18 Pt seen and examined DW RN Appreciate cardiology input Vitals/I&O Vitals/I&O: Vital Signs Date Time Temp Pulse Resp B/P (MAP) Pulse Ox O2 Delivery O2 Flow Rate FiO2 11/20/18 11:46 95 Nasal Cannula 2.0 11/20/18 11:00 98.1 75 19 112/61 (78) 98.1 I & O 11/19/18 11/19/18 11/20/18 14:59 22:59 06:59 Intake Total 120 ml 1000 ml 870 ml Output Total 500 ml 650 ml 950 ml Balance -380 ml 350 ml -80 ml Physical Exam General: Alert, Oriented X3, Cooperative, No acute distress Heart: Other (AFIB/flutter with RVR) Lungs: Clear, Other (decreased breath sounds) Abdomen: Soft, No tenderness, Other (obese) Extremities: No cyanosis, Other (1+ bilateral LE pitting edema) Skin: No breakdown, No significant lesion Labs Labs: Laboratory Tests Test 11/19/18 16:35 11/19/18 20:43 11/20/18 04:30 11/20/18 08:18 Glucose (Fingerstick) 118 mg/dL (70-99) 114 mg/dL (70-99) 129 mg/dL (70-99) White Blood Count 6.8 x10^3/uL (4.0-11.0) Red Blood Count 3.61 x10^6/uL (3.50-5.40) Hemoglobin 10.9 g/dL (12.0-15.5) Hematocrit 32.4 % (36.0-47.0) Mean Corpuscular Volume 90 fL (79-100) Mean Corpuscular Hemoglobin 30 pg (25-35) Mean Corpuscular Hemoglobin Concent 34 g/dL (31-37) Red Cell Distribution Width 14.8 % (11.5-14.5) Platelet Count 187 x10^3/uL (140-400) Neutrophils (%) (Auto) 73 % (31-73) Lymphocytes (%) (Auto) 19 % (24-48) Monocytes (%) (Auto) 5 % (0-9) Eosinophils (%) (Auto) 3 % (0-3) Basophils (%) (Auto) 0 % (0-3) Neutrophils # (Auto) 5.0 x10^3/uL (1.8-7.7) Lymphocytes # (Auto) 1.3 x10^3/uL (1.0-4.8) Monocytes # (Auto) 0.4 x10^3/uL (0.0-1.1) Eosinophils # (Auto) 0.2 x10^3/uL (0.0-0.7) Basophils # (Auto) 0.0 x10^3/uL (0.0-0.2) Heparin Anti-Xa Act, Unfractionated 0.26 IU/mL (0.30-0.70) Sodium Level 140 mmol/L (136-145) Potassium Level 4.4 mmol/L (3.5-5.1) Chloride Level 102 mmol/L (98-107) Carbon Dioxide Level 28 mmol/L (21-32) Anion Gap 10 (6-14) Blood Urea Nitrogen 39 mg/dL (7-20) Creatinine 1.8 mg/dL (0.6-1.0) Estimated GFR (Cockcroft-Gault) 27.5 Glucose Level 138 mg/dL (70-99) Calcium Level 8.7 mg/dL (8.5-10.1) Test 11/20/18 11:26 11/20/18 11:40 Heparin Anti-Xa Act, Unfractionated 0.36 IU/mL (0.30-0.70) Glucose (Fingerstick) 133 mg/dL (70-99) Review of Systems Review of Systems: CO fatigue CO SOA Assessment and Plan Assessmemt and Plan 11/20/18 Assessment Dizziness and hypotension at [facility] Known CAD, 40% blockage Obesity BMI 38 Remote CVA left parietal area Diabetes type 2 Dyslipidemia CK D stage III COPD, stable [place] resident Plan Heparin drip Await for cardiology input Appreciate pulmonology input for COPD Cardiac monitoring PTOT Home meds Labs DVT prophylaxis Comment Review of Relevant I have reviewed the following items gretchen (where applicable) has been applied. Medications: Current Medications Medications (Trade) Dose Ordered Sig/Armond Route PRN Reason Start Time Stop Time Status Last Admin Dose Admin Furosemide (Lasix) 40 mg DAILY PO 11/20/18 09:00 11/20/18 08:48 EKATERINA ALTAMIRANO III DO Nov 20, 2018 15:03
[2018-11-20 19:47] VITALS: BP 99/57
[2018-11-20] MEDS: SIMVASTATIN 40 MG TABLET. PO SCH (20:27)
[2018-11-20] MEDS: MONTELUKAST SODIUM 10 MG TABLET. PO SCH (20:27)
[2018-11-20] MEDS: diazePAM 5 MG TABLET PO PRN (20:27)
[2018-11-20 23:32] VITALS: BP 122/57
[2018-11-21] VITALS (20 sets, daily range): BP systolic 103–176; BP diastolic 53–68
[2018-11-21 06:31] LABS: BASO % 1 % (0-3); EOS # 0.2 x10^3/uL (0.0-0.7); EOS % 3 % (0-3); HEMATOCRIT 32.6 % (36.0-47.0); LYMPH # 1.2 x10^3/uL (1.0-4.8); LYMPH % 18 % (24-48); MEAN CORPUSCULAR HEMOGLOBIN 30 pg (25-35); MEAN CORPUSCULAR HGB CONC 34 g/dL (31-37); MEAN CORPUSCULAR VOLUME 89 fL (79-100); MONO # 0.3 x10^3/uL (0.0-1.1); MONO % 4 % (0-9); NEUT # 4.9 x10^3/uL (1.8-7.7); NEUT % 75 % (31-73); PLATELET COUNT 183 x10^3/uL (140-400); RED BLOOD COUNT 3.67 x10^6/uL (3.50-5.40); RED CELL DISTRIBUTION WIDTH 14.5 % (11.5-14.5); WHITE BLOOD COUNT 6.6 x10^3/uL (4.0-11.0)
[2018-11-21 06:42] LABS: CALCIUM 8.7 mg/dL (8.5-10.1); CREATININE 1.8 mg/dL (0.6-1.0); GFR 27.5; POTASSIUM 4.5 mmol/L (3.5-5.1)
--- NOTE | 2018-11-21 07:49 | CARD ---
MR#: [id number] Date of Study: 11/20/2018 Ordering Physician: NIDIA ROSEN, Referring Physician: ALEXANDRIA DAMICO Tech: Amna Navas RDCS APPROVED REPORT EXAM: Two-dimensional and M-mode echocardiogram with Doppler and color Doppler. Other Information Quality : FairHR: 86bpm Rhythm : Atrial Fibrillation INDICATION Atrial Fibrillation CAD 2D DIMENSIONS Left Atrium(2D)4.6 (1.6-4.0cm)IVSd1.0 (0.7-1.1cm) Aortic Root(2D)2.8 (2.0-3.7cm)LVDd5.1 (3.9-5.9cm) LVOT Diameter2.3 (1.8-2.4cm)PWd1.0 (0.7-1.1cm) LVDs4.2 (2.5-4.0cm)FS (%) 16.2 % SV41.2 mlLVEF(%)33.8 (>50%) Aortic Valve AoV Peak Ruben.150.2cm/sAoV VTI31.3cm AO Peak GR.9.0mmHgLVOT Peak Ruben.102.6cm/s AO Mean GR.6mmHgAVA (VMAX)2.90cm2 Mitral Valve MV E Kjzlpysv893.8cm/sMV DECEL RWIN168cm MV A Mfqcnmpa72.3cm/sE/A Ratio1.4 MV A Rlgmyxiw21cq Tricuspid Valve TR P. Safpzeqw311jz/sRAP FMBRUAIJ8akBt TR Peak Gr.61zwIvMHCD73noBm LEFT VENTRICLE The left ventricle is normal size. There is normal left ventricular wall thickness. The left ventricu lar systolic function is normal and the ejection fraction is within normal range. EF 55% There is nor mal LV segmental wall motion. Tissue Doppler imaging reveals mild left ventricular diastolic dysfunct ion. RIGHT VENTRICLE The right ventricle is normal size. There is normal right ventricular wall thickness. The right ventr icular systolic function is normal. ATRIA The left atrium is mildly dilated. The right atrium size is normal. The interatrial septum is intact with no evidence for an atrial septal defect or patent foramen ovale as noted on 2-D or Doppler imagi ng. AORTIC VALVE The aortic valve is normal in structure and function. Color Flow revealed trace aortic regurgitation. There is no significant aortic valvular stenosis. There is no aortic valvular vegetation. MITRAL VALVE The posterior mitral valve leaflet is thickened. There is no evidence of mitral valve prolapse. There is no mitral valve stenosis. Doppler and Color Flow revealed trace mitral regurgitation. TRICUSPID VALVE The tricuspid valve is normal in structure and function. Doppler and Color Flow revealed mild tricusp id regurgitation. The pulmonary artery systolic pressure is estimated at 50-60 mmHg. There is no tri cuspid valve prolapse or vegetation. There is no tricuspid valve stenosis. PULMONIC VALVE Doppler and Color Flow revealed no pulmonic valvular regurgitation. There is no pulmonic valvular rudy nosis. GREAT VESSELS The aortic root is normal in size. The ascending aorta is normal in size. PERICARDIAL EFFUSION There is no pleural effusion. There is no evidence of significant pericardial effusion. Critical Notification Critical Value: No <Conclusion> The left ventricular systolic function is normal and the ejection fraction is within normal range. EF 55% There is normal LV segmental wall motion. Doppler and Color Flow revealed mild tricuspid regurgitation. The pulmonary artery systolic pressure is estimated at 50-60 mmHg. Signed by : Kolton Estrada, Electronically Approved : 11/21/2018 07:48:38
[2018-11-21] MEDS: metFORMIN 500 MG TABLET PO SCH (08:00)
[2018-11-21] MEDS: IPRATRPIUM/ALBUTEROL 0.5/2.5MG 3 ML NEBU. NEB SCH ×4 (08:24→20:00)
[2018-11-21] MEDS: BUDESONIDE 0.5 MG/2 ML NEBU. NEB SCH ×2 (08:24→20:00)
[2018-11-21] MEDS ORDERED: ANTI-COAG MONITOR BY PHARMACY. MC PRN (08:30)
[2018-11-21] MEDS: METOPROLOL TART IMMED RELEASE 25 MG TABLET. PO SCH ×2 (08:56→20:47)
[2018-11-21] MEDS: ASPIRIN 325 MG TABLET PO SCH (08:56)
[2018-11-21] MEDS: FLUTICASONE 50MCG/NASAL SPRAY 16GM BOTTLE. NS SCH (08:58)
[2018-11-21] MEDS: SENNOSIDES 8.6 MG TABLET PO SCH (09:00)
[2018-11-21] MEDS ORDERED: LIDOCAINE 1% PF 2 ML VIAL. ONE (11:05)
[2018-11-21] MEDS ORDERED: fentaNYL PF VIAL 100 MCG/2 ML VIAL ONE (11:42)
[2018-11-21] MEDS ORDERED: HEPARIN for IV BOLUS 10,000 UNIT/10 ML VIAL. ONE (11:43)
[2018-11-21] MEDS ORDERED: MIDAZOLAM HCL/PF 2 MG/2 ML VIAL. ONE (11:43)
[2018-11-21] MEDS ORDERED: VERAPAMIL 5 MG/2 ML VIAL. ONE (11:43)
[2018-11-21] MEDS ORDERED: NITROGLYCERIN 200 MCG/2 ML SYRINGE FOR CATH/VASC LAB. ONE (11:43)
--- NOTE | 2018-11-21 11:44 | NUR ---
SS following up with discharge planning. SS phoned and faxed clinical updates to [facility], ; fax [phone]. Per pt's RN, pt getting heart cath today. PT recommending home with outpatient. SS will continue to follow for discharge planning.
[2018-11-21] MEDS ORDERED: IODIXANOL 320 MG/ML 100 ML VIAL. ONE (11:53)
[2018-11-21] MEDS ORDERED: fentaNYL PF VIAL 100 MCG/2 ML VIAL IV ONE (12:15)
[2018-11-21] MEDS ORDERED: LIDOCAINE 1% PF 2 ML VIAL. INJ ONE (12:15)
[2018-11-21] MEDS ORDERED: VERAPAMIL 5 MG/2 ML VIAL. IART ONE (12:15)
[2018-11-21] MEDS ORDERED: HEPARIN for IV BOLUS 10,000 UNIT/10 ML VIAL. IART ONE (12:15)
[2018-11-21] MEDS ORDERED: IODIXANOL 320 MG/ML 100 ML VIAL. IART ONE (12:15)
[2018-11-21] MEDS ORDERED: NITROGLYCERIN 200 MCG/2 ML SYRINGE FOR CATH/VASC LAB. IART ONE (12:15)
[2018-11-21] MEDS ORDERED: CONTRAST GIVEN. MC PRN (12:15)
[2018-11-21] MEDS ORDERED: MIDAZOLAM HCL/PF 2 MG/2 ML VIAL. IV ONE (12:15)
--- NOTE | 2018-11-21 12:17 | SNU/HH DC ---
DISCHARGE WITH HOME HEALTH DISCHARGE INFORMATION: Condition on Discharge: Stable HOME HEALTH: Face to Face: I certify this patient is under my care and that I, or a nurse practitioner or physician's tutoring assistant working with me, had a face to face encounter that meets the physician face to face encounter requirements with this patient on []. Medical Complications: DJD Assisted For: Assess & Educate Safety RN For Eval/Treatment: Yes Physical Therapy For: Evalulation/Treatment Occupational Therapy For: Evaluation/Treatment Home Health Aide For: Self-care ELECTRONIC BENCH TECHNICIAN For: Community Resources Pt Meets Homebound Status: Fatigue w/ amb. POST DISCHARGE ORDERS: Activity Instructions for Disc: Activity as tolerated DIET AFTER DISCHARGE: Cardiac CERTIFICATION STATEMENT: Certification Statement: Certification Statement: Based on the above finding, I certify that this patient is confined to the home and needs intermittent long term care, physical therapy and/or speech therapy, or continues to need occupational therapy.~ This patient is under my care, and I have initiated the establishment of the plan of care.~ This patient will be followed by myself or a community physician who will periodically review the plan of care. Home Meds Reported Medications Diclofenac Sodium (VOLTAREN) 100 Gm Gel..gram., 1 GM TP PRN TID PRN for PAIN, #100 GM 2 Refills 11/17/18 Acetaminophen (ACETAMINOPHEN) 500 Mg Tablet, 1 TAB PO PRN Q4HRS PRN for PAIN, #60 TAB 1 Refill 11/17/18 Phosp Acid/Dextrose/Fructose (EMETROL ORAL SOLUTION) 118 Ml Solution, 118 ML PO PRN BID PRN for SANDRA, MISC 11/17/18 Prazosin Hcl (PRAZOSIN HCL) 1 Mg Capsule, 2 CAP PO QHS for SLEEP DISTURBANCE, #30 CAP 2 Refills 11/17/18 Krill/[place]-3/Dha/Epa/Lipids (KRILL OIL 300 MG SOFTGEL) 1 Each Capsule, 1 EACH PO DAILY for SUPPLEMENT, CAP 11/17/18 Alendronate Sodium (ALENDRONATE SODIUM) 70 Mg Tablet, 1 TAB PO WEEKLY for unknown, #4 TAB 3 Refills 11/17/18 Diazepam (VALIUM) 2 Mg Tablet, 2 MG PO BID for anxiety, TAB 11/17/18 Aspirin (ASPIRIN) 81 Mg Tab.chew, 1 TAB PO DAILY for unknown, #30 TAB 3 Refills 11/17/18 Oxycodone/Apap 10-325 (PERCOCET 10-325 MG TABLET ) 1 Each Tablet, 1 TAB PO PRN Q6HRS PRN for PAIN, TAB 0 Refills 04/01/17 Metformin Hcl (METFORMIN HCL) 1,000 Mg Tablet, 1000 MG PO BIDWMEALS, TAB 04/01/17 Simvastatin (ZOCOR) 40 Mg Tablet, 40 MG PO HS for FOR CHOLESTEROL, #30 TAB 0 Refills 04/01/17 Fluticasone/Salmeterol (ADVAIR 250-50 DISKUS) 1 Each Disk.w.dev, 1 INH IH BID, INHALER 04/01/17 Potassium Chloride (POTASSIUM CHLORIDE) 10 Meq Tablet.er, 10 MEQ PO DAILY for supplement, TAB 04/01/17 Tiotropium [place] (SPIRIVA) 18 Mcg Cap.w.dev, 2 CAP IH DAILY for COPD, #30 CAP 5 Refills 04/01/17 Lisinopril (LISINOPRIL) 10 Mg Tablet, 10 MG PO DAILY for FOR HYPERTENSION, #30 TAB 0 Refills 04/01/17 Sennosides (SENOKOT) 8.6 Mg Tablet, 8.6 MG PO DAILY, TAB 04/01/17 Furosemide (LASIX) 40 Mg Tablet, 40 MG PO DAILY for unknown, TAB 04/01/17 Metoprolol Tartrate (METOPROLOL TARTRATE) 25 Mg Tablet, 12.5 MG PO BID for FOR HYPERTENSION, #60 TAB 0 Refills 04/01/17 EKATERINA ALTAMIRANO III DO Nov 21, 2018 12:16
--- NOTE | 2018-11-21 12:26 | PDOC ---
MODERATE SEDATION ASSESSMENT RISKS/ALTERNATIVES Risks/Alternatives Risks and alternatives of this type of sedation and procedure discussed with: RISK/ALTERNATIVES: Patient H & P ON CHART H & P H & P on chart and reviewed for co-morbid conditions and appropriate labs. H&P ON CHART: Yes STATUS PREG STATUS ASSESSED: N/A MEDS/ALLERGIES REVIEWED Meds/Allergies Reviewed Medications and Allergies including time and route of recently administered narcotics and sedatives. MEDS/ALLERGIES REVIEWED: Yes ASA RATING ASA RATING: III AIRWAY ASSESSMENT Airway Assessment Airway patency, oral function limitations, presence of caps, crowns, dentures, partials, and ability to extend neck assessed. AIRWAY ASSESSMENT: Yes MALLAMPATI SCORE MALLAMPATI SCORE: II PRE-SEDATION ASSESSMENT PRE-SEDATION ASSESSMENT: Yes RISHABH MELENDEZ MD Nov 21, 2018 12:26
--- NOTE | 2018-11-21 12:29 | PDOC ---
[employer] [facility] PROGRESS NOTE Chief Complaint Chief Complaint Dizziness and hypotension at [facility] [place] Known CAD, 40% blockage Obesity BMI 38 Remote CVA left parietal area Diabetes type 2 Dyslipidemia CK D stage III COPD, stable [place] History of Present Illness History of Present Illness 11/21/18 Pt seen and examined Still in AFIB 100-110 Pt alert and sitting up in bed DW family and RN at length 11/20/18 Pt seen and examined Still in AFIB and good rate control 11/19/18 Pt seen and examined DW RN Appreciate cardiology input Vitals/I&O Vitals/I&O: Vital Signs Date Time Temp Pulse Resp B/P (MAP) Pulse Ox O2 Delivery O2 Flow Rate FiO2 11/21/18 12:15 81 18 91 Nasal Cannula 2.0 11/21/18 11:00 97.9 123/68 (86) 97.9 I & O 11/20/18 11/20/18 11/21/18 14:59 22:59 06:59 Intake Total 850 ml Output Total 350 ml 900 ml 700 ml Balance -350 ml -50 ml -700 ml Physical Exam General: Alert, Oriented X3, Cooperative, No acute distress Heart: Other (AFIB/flutter with RVR) Lungs: Clear, Other (decreased breath sounds) Abdomen: Soft, No tenderness, Other (obese) Extremities: No cyanosis, Other (1+ bilateral LE pitting edema) Skin: No breakdown, No significant lesion Labs Labs: Laboratory Tests Test 11/20/18 16:52 11/20/18 18:10 11/20/18 20:17 11/21/18 05:35 Glucose (Fingerstick) 118 mg/dL (70-99) 161 mg/dL (70-99) Heparin Anti-Xa Act, Unfractionated 0.43 IU/mL (0.30-0.70) White Blood Count 6.6 x10^3/uL (4.0-11.0) Red Blood Count 3.67 x10^6/uL (3.50-5.40) Hemoglobin 11.0 g/dL (12.0-15.5) Hematocrit 32.6 % (36.0-47.0) Mean Corpuscular Volume 89 fL (79-100) Mean Corpuscular Hemoglobin 30 pg (25-35) Mean Corpuscular Hemoglobin Concent 34 g/dL (31-37) Red Cell Distribution Width 14.5 % (11.5-14.5) Platelet Count 183 x10^3/uL (140-400) Neutrophils (%) (Auto) 75 % (31-73) Lymphocytes (%) (Auto) 18 % (24-48) Monocytes (%) (Auto) 4 % (0-9) Eosinophils (%) (Auto) 3 % (0-3) Basophils (%) (Auto) 1 % (0-3) Neutrophils # (Auto) 4.9 x10^3/uL (1.8-7.7) Lymphocytes # (Auto) 1.2 x10^3/uL (1.0-4.8) Monocytes # (Auto) 0.3 x10^3/uL (0.0-1.1) Eosinophils # (Auto) 0.2 x10^3/uL (0.0-0.7) Basophils # (Auto) 0.0 x10^3/uL (0.0-0.2) Sodium Level 142 mmol/L (136-145) Potassium Level 4.5 mmol/L (3.5-5.1) Chloride Level 103 mmol/L (98-107) Carbon Dioxide Level 28 mmol/L (21-32) Anion Gap 11 (6-14) Blood Urea Nitrogen 39 mg/dL (7-20) Creatinine 1.8 mg/dL (0.6-1.0) Estimated GFR (Cockcroft-Gault) 27.5 Glucose Level 126 mg/dL (70-99) Calcium Level 8.7 mg/dL (8.5-10.1) Test 11/21/18 07:37 Glucose (Fingerstick) 113 mg/dL (70-99) Review of Systems Review of Systems: Denies CM Denies N/V/D Assessment and Plan Assessmemt and Plan 11/21/18 Assessment Dizziness and hypotension at [facility] [place] Known CAD, 40% blockage Obesity BMI 38 Remote CVA left parietal area Diabetes type 2 Dyslipidemia CK D stage III COPD, stable [place] resident Plan Holding heparin for procedure Cardiac monitoring 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 Medications: Current Medications Medications (Trade) Dose Ordered Sig/Armond Route PRN Reason Start Time Stop Time Status Last Admin Dose Admin Nitroglycerin (Nitroglycerin) 200 mcg 1X ONCE IART 11/21/18 12:15 11/21/18 12:16 DC 11/21/18 12:12 Verapamil HCl (Verapamil) 2.5 mg 1X ONCE IART 11/21/18 12:15 11/21/18 12:16 DC 11/21/18 12:12 Heparin Sodium (Porcine) (Heparin Sodium) 2,500 unit 1X ONCE IART 11/21/18 12:15 11/21/18 12:16 DC 11/21/18 12:13 Heparin Sodium/ Sodium Chloride (HEPARIN for ARTERIAL LINE FLUSH) 1,000 unit 1X ONCE IART 11/21/18 12:15 11/21/18 12:16 DC 11/21/18 12:12 Midazolam HCl (Versed) 1 mg 1X ONCE IV 11/21/18 12:15 11/21/18 12:16 DC 11/21/18 12:13 Fentanyl Citrate (Fentanyl 2ml Vial) 50 mcg 1X ONCE IV 11/21/18 12:15 11/21/18 12:16 DC 11/21/18 12:14 Iodixanol (Visipaque 320) 100 ml 1X ONCE IART 11/21/18 12:15 11/21/18 12:16 DC 11/21/18 12:12 Lidocaine HCl (Xylocaine-Mpf 1% 2ml Vial) 1 ml 1X ONCE INJ 11/21/18 12:15 11/21/18 12:16 DC 11/21/18 12:14 EKATERINA ALTAMIRANO III DO Nov 21, 2018 12:29
--- NOTE | 2018-11-21 12:40 | PDOC ---
MODERATE SEDATION ASSESSMENT RISKS/ALTERNATIVES Risks/Alternatives Risks and alternatives of this type of sedation and procedure discussed with: RISK/ALTERNATIVES: Patient H & P ON CHART H & P H & P on chart and reviewed for co-morbid conditions and appropriate labs. H&P ON CHART: Yes STATUS PREG STATUS ASSESSED: N/A MEDS/ALLERGIES REVIEWED Meds/Allergies Reviewed Medications and Allergies including time and route of recently administered narcotics and sedatives. MEDS/ALLERGIES REVIEWED: Yes ASA RATING ASA RATING: II AIRWAY ASSESSMENT Airway Assessment Airway patency, oral function limitations, presence of caps, crowns, dentures, partials, and ability to extend neck assessed. AIRWAY ASSESSMENT: Yes MALLAMPATI SCORE MALLAMPATI SCORE: II PRE-SEDATION ASSESSMENT PRE-SEDATION ASSESSMENT: Yes RISHABH MELENDEZ MD Nov 21, 2018 12:40
[2018-11-21] MEDS ORDERED: NITROGLYCERIN SUBLINGUAL 0.4 MG BOTTLE OF 25. SL PRN (12:45)
[2018-11-21] MEDS: IV 1/2 NORMAL SALINE 1,000 ML IV SCH (12:47)
[2018-11-21] MEDS: CYANOCOBALAMIN (VITAMIN B-12) 1,000 MCG TABLET. PO SCH (13:50)
[2018-11-21] MEDS: PANTOPRAZOLE 40 MG TABLET.DR. PO SCH (13:50)
[2018-11-21] MEDS: LINAGLIPTIN 5 MG TABLET PO SCH (13:50)
[2018-11-21] MEDS: hydrOXYzine 25 MG TABLET PO SCH ×2 (13:51→20:46)
[2018-11-21] MEDS: FUROSEMIDE 40 MG TABLET. PO SCH (13:51)
[2018-11-21] MEDS: POTASSIUM CHLORIDE 10 MEQ TABLET.ER. PO SCH ×2 (13:51→17:28)
--- NOTE | 2018-11-21 16:04 | CARD ---
MR#: [id number] Date of Study: 11/21/2018 Ordering Physician: EMELINA VIGIL, Referring Physician: ALEXANDRIA DAMICO, Tech: Crystal Bliss APPROVED REPORT Technologist: Crystal Bliss Nurse: Hillary Bazzi Procedure(s) performed: Left heart catheterization, selective coronary angiography and left ventricul ography via right transradial approach fl time: 2.6 mins dose: 49 gy/cm2 contrast: 67 ml sedation: 25 MIN INDICATION The indication(s) include : unstable angina . CSHA Clinical Frailty Scale [facility] Clinical Frailty Scale: Mildly Frail Heart Failure Heart Failure: No PROCEDURE NARRATIVE After explaining the risks, benefits and alternative options, informed consent was obtained from mamie ent. Patient was brought to the cardiac Store Sales Leader and right wrist was prepped and draped in the usual fashion after confirming a positive modified Bobby's test. Arterial access was obtained in the righ t radial artery and a 6 Mohawk sheath was inserted. 6 Mohawk Panchito catheter was used to perform flor ective angiography of the left and right coronary arteries. 6 [place]awk pigtail catheter was used to pe rform left ventriculography. Patient tolerated the procedure well. Hemostasis was achieved using TR band. There were no immediate complications. The following findings were noted. FINDINGS 1. Hemodynamics: Left ventricular end-diastolic pressure of 24 mmHg. No pullback gradient across th e aortic valve. 2. Left ventriculography: Normal left ventricle systolic function with ejection fraction estimated at 65%. No significant mitral regurgitation seen. 3. Coronary angiography: a. The left main coronary artery arose from the left sinus of Valsalva, gave rise to the left anteri or descending and left circumflex arteries and did not show any significant stenosis. b. The left anterior descending artery showed widely patent stent in the midsegment. c. The left circumflex artery showed widely patent stent in the midsegment extending into the obtuse marginal branch. There was 30% stenosis noted in the obtuse marginal branch distal to the stent. d. The right coronary artery was a large and dominant vessel arising from the right sinus of Valsalv a that did not show any significant stenosis. Conclusion 1. No significant coronary artery disease with widely patent previously placed stents in the left an terior descending and left circumflex arteries 2. Normal left ventricle systolic function with ejection fraction estimated at 65% Recommendations Medical Therapy Signed by : Talib Uriarte, Electronically Approved : 11/21/2018 16:04:17
[2018-11-21] MEDS: MONTELUKAST SODIUM 10 MG TABLET. PO SCH (20:46)
[2018-11-21] MEDS: SIMVASTATIN 40 MG TABLET. PO SCH (20:46)
[2018-11-21] MEDS: diazePAM 5 MG TABLET PO PRN (20:49)
[2018-11-22 03:08] VITALS: BP 112/58
[2018-11-22 05:17] LABS: BASO % 0 % (0-3); EOS # 0.2 x10^3/uL (0.0-0.7); EOS % 3 % (0-3); HEMATOCRIT 32.4 % (36.0-47.0); HEMOGLOBIN 10.9 g/dL (12.0-15.5); LYMPH # 1.1 x10^3/uL (1.0-4.8); LYMPH % 17 % (24-48); MEAN CORPUSCULAR HEMOGLOBIN 30 pg (25-35); MEAN CORPUSCULAR HGB CONC 34 g/dL (31-37); MEAN CORPUSCULAR VOLUME 89 fL (79-100); MONO # 0.3 x10^3/uL (0.0-1.1); MONO % 5 % (0-9); NEUT # 4.8 x10^3/uL (1.8-7.7); NEUT % 75 % (31-73); PLATELET COUNT 166 x10^3/uL (140-400); RED BLOOD COUNT 3.63 x10^6/uL (3.50-5.40); WHITE BLOOD COUNT 6.5 x10^3/uL (4.0-11.0)
[2018-11-22 05:43] LABS: CALCIUM 8.7 mg/dL (8.5-10.1); CREATININE 1.7 mg/dL (0.6-1.0); GFR 29.4; POTASSIUM 4.4 mmol/L (3.5-5.1)
[2018-11-22] MEDS: PANTOPRAZOLE 40 MG TABLET.DR. PO SCH (06:27)
[2018-11-22] MEDS: IV 1/2 NORMAL SALINE 1,000 ML IV SCH (06:28)
[2018-11-22 07:00] VITALS: BP 128/58
[2018-11-22] MEDS: IPRATRPIUM/ALBUTEROL 0.5/2.5MG 3 ML NEBU. NEB SCH ×2 (08:06→12:52)
[2018-11-22] MEDS: BUDESONIDE 0.5 MG/2 ML NEBU. NEB SCH (08:07)
[2018-11-22] MEDS: FUROSEMIDE 40 MG TABLET. PO SCH (09:08)
[2018-11-22] MEDS: SENNOSIDES 8.6 MG TABLET PO SCH (09:08)
[2018-11-22] MEDS: CYANOCOBALAMIN (VITAMIN B-12) 1,000 MCG TABLET. PO SCH (09:08)
[2018-11-22] MEDS: METOPROLOL TART IMMED RELEASE 25 MG TABLET. PO SCH (09:08)
[2018-11-22] MEDS: hydrOXYzine 25 MG TABLET PO SCH (09:08)
[2018-11-22] MEDS: ASPIRIN 325 MG TABLET PO SCH (09:08)
[2018-11-22] MEDS: LINAGLIPTIN 5 MG TABLET PO SCH (09:08)
[2018-11-22] MEDS: FLUTICASONE 50MCG/NASAL SPRAY 16GM BOTTLE. NS SCH (09:09)
[2018-11-22] MEDS: POTASSIUM CHLORIDE 10 MEQ TABLET.ER. PO SCH (09:09)
[2018-11-22 11:00] VITALS: BP 128/59
--- NOTE | 2018-11-22 12:16 | PDOC ---
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 Clean cath Pt alert and lying down in bed DW RN 11/21/18 Pt seen and examined Still in AFIB 100-110 Pt alert and sitting up in bed DW family and RN at length 11/20/18 Pt seen and examined Still in AFIB and good rate control 11/19/18 Pt seen and examined DW RN Appreciate cardiology input Vitals/I&O Vitals/I&O: Vital Signs Date Time Temp Pulse Resp B/P (MAP) Pulse Ox O2 Delivery O2 Flow Rate FiO2 11/22/18 11:00 98.4 63 20 128/59 (82) 95 Nasal Cannula 2.0 98.4 I & O 11/21/18 11/21/18 11/22/18 14:59 22:59 06:59 Intake Total 240 ml 0 ml Output Total 300 ml 300 ml 1000 ml Balance -300 ml -60 ml -1000 ml Physical Exam General: Alert, Oriented X3, Cooperative, No acute distress Heart: Other (AFIB/flutter with RVR) Lungs: Clear, Other (decreased breath sounds) Abdomen: Soft, No tenderness, Other (obese) Extremities: No cyanosis, Other (1+ bilateral LE pitting edema) Skin: No breakdown, No significant lesion Labs Labs: Laboratory Tests Test 11/21/18 12:31 11/21/18 16:34 11/21/18 20:46 11/22/18 04:25 Glucose (Fingerstick) 114 mg/dL (70-99) 171 mg/dL (70-99) 157 mg/dL (70-99) White Blood Count 6.5 x10^3/uL (4.0-11.0) Red Blood Count 3.63 x10^6/uL (3.50-5.40) Hemoglobin 10.9 g/dL (12.0-15.5) Hematocrit 32.4 % (36.0-47.0) Mean Corpuscular Volume 89 fL (79-100) Mean Corpuscular Hemoglobin 30 pg (25-35) Mean Corpuscular Hemoglobin Concent 34 g/dL (31-37) Red Cell Distribution Width 15.0 % (11.5-14.5) Platelet Count 166 x10^3/uL (140-400) Neutrophils (%) (Auto) 75 % (31-73) Lymphocytes (%) (Auto) 17 % (24-48) Monocytes (%) (Auto) 5 % (0-9) Eosinophils (%) (Auto) 3 % (0-3) Basophils (%) (Auto) 0 % (0-3) Neutrophils # (Auto) 4.8 x10^3/uL (1.8-7.7) Lymphocytes # (Auto) 1.1 x10^3/uL (1.0-4.8) Monocytes # (Auto) 0.3 x10^3/uL (0.0-1.1) Eosinophils # (Auto) 0.2 x10^3/uL (0.0-0.7) Basophils # (Auto) 0.0 x10^3/uL (0.0-0.2) Sodium Level 139 mmol/L (136-145) Potassium Level 4.4 mmol/L (3.5-5.1) Chloride Level 101 mmol/L (98-107) Carbon Dioxide Level 29 mmol/L (21-32) Anion Gap 9 (6-14) Blood Urea Nitrogen 41 mg/dL (7-20) Creatinine 1.7 mg/dL (0.6-1.0) Estimated GFR (Cockcroft-Gault) 29.4 Glucose Level 140 mg/dL (70-99) Calcium Level 8.7 mg/dL (8.5-10.1) Test 11/22/18 07:43 Glucose (Fingerstick) 120 mg/dL (70-99) Review of Systems Review of Systems: Denies CM Denies N/V/D Assessment and Plan Assessmemt and Plan Problems Medical Problems: (1) CAD (coronary artery disease) Status: Chronic (2) CKD (chronic kidney disease), stage III Status: Chronic (3) Diabetes Status: Chronic (4) HLD (hyperlipidemia) Status: Chronic (5) HTN (hypertension) Status: Chronic 11/22/18 Assessment Dizziness and hypotension at nuc med Known CAD, 40% blockage Obesity BMI 38 Remote CVA left parietal area Diabetes type 2 Dyslipidemia CK D stage III COPD, stable [place] resident Plan Hope to discharge later today if okay with cardiology to home health Comment Review of Relevant I have reviewed the following items gretchen (where applicable) has been applied. Medications: Current Medications Medications (Trade) Dose Ordered Sig/Armond Route PRN Reason Start Time Stop Time Status Last Admin Dose Admin Nitroglycerin (Nitroglycerin) 200 mcg 1X ONCE IART 11/21/18 12:15 11/21/18 12:16 DC 11/21/18 12:12 Verapamil HCl (Verapamil) 2.5 mg 1X ONCE IART 11/21/18 12:15 11/21/18 12:16 DC 11/21/18 12:12 Heparin Sodium (Porcine) (Heparin Sodium) 2,500 unit 1X ONCE IART 11/21/18 12:15 11/21/18 12:16 DC 11/21/18 12:13 Heparin Sodium/ Sodium Chloride (HEPARIN for ARTERIAL LINE FLUSH) 1,000 unit 1X ONCE IART 11/21/18 12:15 11/21/18 12:16 DC 11/21/18 12:12 Midazolam HCl (Versed) 1 mg 1X ONCE IV 11/21/18 12:15 11/21/18 12:16 DC 11/21/18 12:13 Fentanyl Citrate (Fentanyl 2ml Vial) 50 mcg 1X ONCE IV 11/21/18 12:15 11/21/18 12:16 DC 11/21/18 12:14 Iodixanol (Visipaque 320) 100 ml 1X ONCE IART 11/21/18 12:15 11/21/18 12:16 DC 11/21/18 12:12 Lidocaine HCl (Xylocaine-Mpf 1% 2ml Vial) 1 ml 1X ONCE INJ 11/21/18 12:15 11/21/18 12:16 DC 11/21/18 12:14 Sodium Chloride 1,000 ml @ 60 mls/hr [id number] IV 11/21/18 12:40 11/22/18 06:28 EKATERINA ALTAMIRANO III DO Nov 22, 2018 12:15
--- NOTE | 2018-11-22 12:54 | NUR ---
SS following up with discharge planning. Orders received for home healthcare. SS phoned and faxed discharge orders and clinical to [facility], ; fax [phone], and [facility], ; fax [phone]. Pt will discharge today and return to [facility] between 1500 and 1530 via [facility] transportation. Pt and pt's RN notified.
[2018-11-22] MEDS ORDERED: APIXABAN 5 MG TABLET. PO SCH (14:00)
[2018-11-22] MEDS ORDERED: METO25TA4 PO (14:37)
[2018-11-22] MEDS ORDERED: HYDR25TA PO (14:40)
--- NOTE | 2018-11-22 14:43 | PDOC ---
NIDIA ROSEN [employer] MARKER 11/22/18 1443: CARDIO Progress Notes Date and Time Date of Service 11/22/2018 Time of Evaluation 1230 Subjective Subjective: No Chest Pain, No shortness of breath, No Palpitations Vitals Vitals Vital Signs Date Time Temp Pulse Resp B/P (MAP) Pulse Ox O2 Delivery O2 Flow Rate FiO2 11/22/18 12:54 Nasal Cannula 2.0 11/22/18 11:00 98.4 63 20 128/59 (82) 95 98.4 Weight Weight [ ] Input and Output Intake and Output Intake and Output 11/22/18 06:59 Intake Total 240 ml Output Total 1600 ml Balance -1360 ml Intake Oral 240 ml Output Urine Total 1600 ml Laboratory Labs Laboratory Tests Test 11/21/18 16:34 11/21/18 20:46 11/22/18 04:25 11/22/18 07:43 Glucose (Fingerstick) 171 mg/dL (70-99) 157 mg/dL (70-99) 120 mg/dL (70-99) White Blood Count 6.5 x10^3/uL (4.0-11.0) Red Blood Count 3.63 x10^6/uL (3.50-5.40) Hemoglobin 10.9 g/dL (12.0-15.5) Hematocrit 32.4 % (36.0-47.0) Mean Corpuscular Volume 89 fL (79-100) Mean Corpuscular Hemoglobin 30 pg (25-35) Mean Corpuscular Hemoglobin Concent 34 g/dL (31-37) Red Cell Distribution Width 15.0 % (11.5-14.5) Platelet Count 166 x10^3/uL (140-400) Neutrophils (%) (Auto) 75 % (31-73) Lymphocytes (%) (Auto) 17 % (24-48) Monocytes (%) (Auto) 5 % (0-9) Eosinophils (%) (Auto) 3 % (0-3) Basophils (%) (Auto) 0 % (0-3) Neutrophils # (Auto) 4.8 x10^3/uL (1.8-7.7) Lymphocytes # (Auto) 1.1 x10^3/uL (1.0-4.8) Monocytes # (Auto) 0.3 x10^3/uL (0.0-1.1) Eosinophils # (Auto) 0.2 x10^3/uL (0.0-0.7) Basophils # (Auto) 0.0 x10^3/uL (0.0-0.2) Sodium Level 139 mmol/L (136-145) Potassium Level 4.4 mmol/L (3.5-5.1) Chloride Level 101 mmol/L (98-107) Carbon Dioxide Level 29 mmol/L (21-32) Anion Gap 9 (6-14) Blood Urea Nitrogen 41 mg/dL (7-20) Creatinine 1.7 mg/dL (0.6-1.0) Estimated GFR (Cockcroft-Gault) 29.4 Glucose Level 140 mg/dL (70-99) Calcium Level 8.7 mg/dL (8.5-10.1) Test 11/22/18 12:09 Glucose (Fingerstick) 203 mg/dL (70-99) Physical Exam HEENT: Neck Supple W Full Motion Chest: Symmetric LUNGS: Other (diminisehd bases) Heart: irregularly irregular (AFIB rate controlled) Abdomen: Soft N/T, Other (obese) Extremities: No Calf Tenderness, Other (trace LE edema) Neurology: alert, oriented, follow commands Assessment Assessment 1. AFIB/Aflutter with RVR: rate controlled. EF and WM nml 2. Hypotension: due to RVR. resolved 3. CAD: stents in the past. S/P C with patent stents 4. HTN: controlled 5. DM2/HLP 6. Obesity 7. CKD3: Cr within her baseline 1.5-1.7 8. ZAC? 9. Chronic diastolic CHF: compensated 10. Hx of CVA Recommendations 1, Continue with metoprolol. Eliquis for stroke prevention. No hx of falls or bleeding. 2. Plan for outpt CVN in 3-4 wks. 3. OK to DC to assisted living. Follow up in office 4. Secondary prevention measures. RISHABH MELENDEZ MD 11/22/18 1702: CARDIO Progress Notes Assessment Assessment Patient seen and examined. Agree with GATE GUARD's assessment and plan Cardiac catheterization yesterday showed patent previously placed stents without any lesions needing intervention Atrial fibrillation rate better controlled Plan outpatient cardioversion in 3-4 weeks NIDIA ROSEN [employer]ER Nov 22, 2018 14:43 RISHABH MELENDEZ MD Nov 22, 2018 17:02
[2018-11-22] MEDS ORDERED: APIX5TAB PO (15:04)
--- NOTE | 2018-11-22 15:58 | NUR ---
Discharge Note: MICAELA [place] Discharge instructions and discharge home medications reviewed with Patient and a copy given. All questions have been answered and understanding verbalized. The following instructions and handouts were given: atrial fibrillation, eliquis Patient discharged to Home w/services with Transport via Wheelchair
[2018-11-23] MEDS ORDERED: ASPIRIN ENTERIC COATED 81 MG TABLET.DR. PO SCH (08:00)
--- NOTE | 2018-11-23 13:48 | DS ---
DATE OF DISCHARGE: 11/22/2018 ADMISSION DIAGNOSES: Shortness of breath and atrial fibrillation, congestive heart failure. DISCHARGE DIAGNOSES: Chronic atrial fibrillation, resolving congestive heart failure. CONSULTS: Cardiology. PROCEDURES: None (she is awaiting outpatient cardioversion). HOSPITAL COURSE: The patient is a pleasant 72-year-old female who presented with shortness of breath, was noted to be in AFib. We did admit the patient and consulted Cardiology, did serial enzymes, serial EKGs. She did go for cardiac catheterization 2 days ago and it was clean. We did have her on a heparin drip for a while. We went ahead and put her on Eliquis 5 b.i.d. When we saw her yesterday, she was doing well. We discharged and she is going to be doing an outpatient cardioversion. DISPOSITION: Home with home health. ACTIVITY: As tolerated. DIET: Low sodium. MEDICATIONS: Please see the MRAD. TOTAL TIME: 31 minutes. EKATERINA ALTAMIRANO DO DR: CARA/heather JOB#: [id number] / [id number]
[2018-11-23] MEDS ORDERED: metFORMIN 500 MG TABLET PO SCH (17:00)
== END 2018-11-22 16:03 | disposition home health service (06) | DRG 287 ==
LOC: ER 11:41 → 6 SOUTH 16:10 → OBSVTOIN 11-18 08:47 → 2 NORTH 11-18 15:37
PROVIDERS: ADMIT Family Medicine; ATTEND Family Medicine
PROC: 4A023N7 Measurement of Cardiac Sampling and Pressure, Left Heart, Percutaneous Approach (ICD-10-PCS; principal; 2018-11-21)
PROC: B2111ZZ Fluoroscopy of Multiple Coronary Arteries using Low Osmolar Contrast (ICD-10-PCS; 2018-11-21)
PROC: B2151ZZ Fluoroscopy of Left Heart using Low Osmolar Contrast (ICD-10-PCS; 2018-11-21)
DX: I48.92 Unspecified atrial flutter (principal); I13.0 Hypertensive heart and chronic kidney disease with heart failure and stage 1 through stage 4 chronic kidney disease, or unspecified chronic kidney disease; I50.32 Chronic diastolic (congestive) heart failure; I48.2 Chronic atrial fibrillation; I25.10 Atherosclerotic heart disease of native coronary artery without angina pectoris; I95.9 Hypotension, unspecified; E11.22 Type 2 diabetes mellitus with diabetic chronic kidney disease; E66.01 Morbid (severe) obesity due to excess calories; E78.00 Pure hypercholesterolemia, unspecified; E78.5 Hyperlipidemia, unspecified; J44.9 Chronic obstructive pulmonary disease, unspecified; M19.90 Unspecified osteoarthritis, unspecified site; F41.9 Anxiety disorder, unspecified; K21.9 Gastro-esophageal reflux disease without esophagitis; N18.3 Chronic kidney disease, stage 3 (moderate); Z68.38 Body mass index [BMI] 38.0-38.9, adult; Z79.01 Long term (current) use of anticoagulants; Z79.82 Long term (current) use of aspirin; Z86.73 Personal history of transient ischemic attack (TIA), and cerebral infarction without residual deficits; Z90.710 Acquired absence of both cervix and uterus; Z95.5 Presence of coronary angioplasty implant and graft; Z88.0 Allergy status to penicillin; Z90.49 Acquired absence of other specified parts of digestive tract; Z79.84 Long term (current) use of oral hypoglycemic drugs
CPT/HCPCS: 36415; 71045; 78452; 80048; 80053; 80061; 82553; 82962; 83735; 83880; 84443; 84484; 85025; 85520; 85610; 85730; 87641; 93005; 93017; 93306; 93458; 93970; 94640; 94760; 96376; 99152; 99153; A9500; C1769; C1892; G0378; G0379; J1160; J1644; J2250; J2785; J3010; J3475; J3490; J7620; J7626; Q9967; 97116; 99285-25

== ENCOUNTER → 2020-05-28 | Outpatient (CLI) | payer MEDICARE, OTHER ==
[~2020-05-28] MED LIST changes: +ACET500T68 PO; +ALEN70TA71 PO; +APIX5TAB PO; +ASPI-630 PO; +COLL30OI TP; +DIAZ2TAB PO; +DICL100G54 TP; +KRIL1CAP10 PO; +LISI10TA16 PO; -LISI10TA2 PO; +MUPI22OI2 TP; +PHOS118S17 PO; -POTA10TA12 PO; +POTASSIUM CHLO10 ME1 PO; +PRAZ1CAP2 PO
--- NOTE | 2020-05-28 14:26 | CARD ---
MR#: [id number] Date of Study: 05/28/2020 Ordering Physician: RISHABH MELENDEZ, Referring Physician: RISHABH MELENDEZ Tech: Radha Lopez RDCS APPROVED REPORT EXAM: Two-dimensional and M-mode echocardiogram with Doppler and color Doppler. Other Information Quality : Good INDICATION Cardiac Disease: CAD 2D DIMENSIONS RVDd3.0 (2.9-3.5cm)Left Atrium(2D)3.3 (1.6-4.0cm) IVSd1.0 (0.7-1.1cm)Aortic Root(2D)3.2 (2.0-3.7cm) LVDd4.4 (3.9-5.9cm)LVOT Diameter2.0 (1.8-2.4cm) PWd1.1 (0.7-1.1cm)LVDs2.5 (2.5-4.0cm) FS (%) 30.0 %SV65.7 ml LVEF(%)60.0 (>50%) Aortic Valve AoV Peak Ruben.127.9cm/sAoV VTI25.9cm AO Peak GR.6.5mmHgLVOT Peak Ruben.106.6cm/s LVOT VTI 21.31cmAO Mean GR.4mmHg ISABEL (VMAX)2.68fz1MDV (VTI)2.64cm2 AI P 1/2 Btoi507lo Mitral Valve MV E Oeskznwz33.2cm/sMV DECEL MOLD215zj MV A Lcryzezq41.6cm/sMV GQE722yg E/A Ratio0.6MVA (PHT)2.20cm2 TDI E/Lateral E'6.9E/Medial E'13.6 Tricuspid Valve TR P. Wprljdhd513vn/sRAP WDAZBIFJ3lfIp TR Peak Gr.90ziKqMNTY20mqKr Pulmonary Vein S1 Zwnvlckf48.4cm/sD2 Xnddazfe53.1cm/s LEFT VENTRICLE The left ventricle is normal size. There is normal left ventricular wall thickness. The left ventricu lar systolic function is normal and the ejection fraction is within normal range. The Ejection Fracti on is 55-60%. There is normal LV segmental wall motion. Transmitral Doppler flow pattern is Grade I-a bnormal relaxation pattern. RIGHT VENTRICLE The right ventricle is normal size. The right ventricular systolic function is normal. ATRIA The left atrium size is normal. The right atrium size is normal. The interatrial septum is intact wit h no evidence for an atrial septal defect or patent foramen ovale as noted on 2-D or Doppler imaging. AORTIC VALVE The aortic valve is calcified but opens well. Doppler and Color Flow revealed mild aortic regurgitati on. There is no significant aortic valvular stenosis. MITRAL VALVE The mitral valve is calcified but opens well. Mitral annular calcification is mild to moderate. There is no evidence of mitral valve prolapse. There is no mitral valve stenosis. Doppler and Color-flow r evealed trace mitral regurgitation. TRICUSPID VALVE The tricuspid valve is normal in structure and function. Doppler and Color Flow revealed mild tricusp id regurgitation. The PA pressure was estimated at 40 mmHg. There is no tricuspid valve stenosis. PULMONIC VALVE The pulmonic valve is not well visualized. Doppler and Color Flow revealed no pulmonic valvular regur gitation. There is no pulmonic valvular stenosis. GREAT VESSELS The aortic root is normal in size. The ascending aorta is normal in size. The IVC is normal in size a nd collapses >50% with inspiration. PERICARDIAL EFFUSION There is no evidence of significant pericardial effusion. Critical Notification Critical Value: No <Conclusion> The left ventricular systolic function is normal and the ejection fraction is within normal range. Th e Ejection Fraction is 55-60%. There is normal LV segmental wall motion. Signed by : Kolton Estrada, Electronically Approved : 05/28/2020 14:26:15
== END ==
LOC: ECHO 08:39
PROVIDERS: ATTEND Internal Medicine Cardiovascular Disease
DX: I08.3 Combined rheumatic disorders of mitral, aortic and tricuspid valves (principal); I25.10 Atherosclerotic heart disease of native coronary artery without angina pectoris
CPT/HCPCS: 93306